=== PATIENT | male | born 1960 | race Caucasian/White ===

== ENCOUNTER 2017-05-13 13:22 | Emergency (ER) | payer OTHER ==
--- NOTE | 2017-05-13 13:38 | ED Physician Documentation ---
PD HPI UPPER EXT INJURY - Stated complaint Stated Complaint: LT THUMB LAC - Chief complaint Chief Complaint: Laceration - History obtained from History obtained from: Patient - History of Present Illness Location: Left, Hand (thenar area) Type of injury: Laceration (with sharp chisel tip while doing some woodwork.) Where injury occurred: Home Timing - onset: Today Timing - details: Abrupt onset Improved by: Dressing Worsened by: Moving, Palpating Associated symptoms: No: Weakness, Numbness, Tingling Contributing factors: No: Anticoagulated Similar symptoms before: Has not had sx before Recently seen: Not recently seen Review of Systems Skin: reports: Laceration (s) Neurologic: denies: Focal weakness, Numbness PD PAST MEDICAL HISTORY - Past Medical History Past Medical History: Yes Cardiovascular: Hypertension, Other Respiratory: None Endocrine/Autoimmune: None GI: GERD, GI bleed, Ulcers, Other : None HEENT: Chronic vision loss Psych: Other Musculoskeletal: Chronic back pain Derm: Other - Past Surgical History Past Surgical History: Yes General: Gastric surgery, Colonoscopy, EGD HEENT: Tonsil/Adenoidectomy - Present Medications Home Medications: Ambulatory Orders Medication Instructions Recorded Confirmed Amlodipine Besylate/Benazepril 1 each PO QPM 10/01/14 05/13/17 [Lotrel 10-40 mg Capsule] traMADol [Ultram] 50 mg PO Q4-6H PRN 10/01/14 05/13/17 Cyanocobalamin (Vitamin B-12) 2,500 mcg PO DAILY 02/03/16 05/13/17 [Vitamin B12] Vitamin B Complex/Folic Acid 1 tab PO DAILY 02/03/16 05/13/17 [Vitamin B-100 Complex Tablet] - Allergies Allergies/Adverse Reactions: Allergies Allergy/AdvReac Type Severity Reaction Status Date / Time NSAIDS (Non-Steroidal AdvReac Intermediate GI bleed Verified 05/13/17 13:33 Anti-Inflamma - Social History Does the pt smoke?: Yes Smoking Status: Current every day smoker Does the pt drink ETOH?: No Does the pt have substance abuse?: No - Immunizations Immunizations are current?: No Immunizations: TDAP >10years/unknown PD ED PE NORMAL - Vitals Vital signs reviewed: Yes - General General: Alert and oriented X 3, No acute distress, Well developed/nourished - Extremities Extremities: Other (left thenar area with 3 cm laceration with small arteriole bleeding noted. The lac goes to the muscle but he has good ROM of the thumb without pain. No FB seen. ) Results - Vitals Vitals: Vital Signs - 24 hr 05/13/17 13:29 Temperature 36.6 C Heart Rate 87 Respiratory 20 Rate Blood Pressure 168/98 H O2 Saturation 98 Oxygen O2 Source Room air Procedures - Laceration (location) left thenar area Length in cm: 3 Wound type: Linear, Into muscle, Clean Neurovascular status: Sensory intact, Motor intact Tendon involvement: Tendon intact Anesthesia: Marcaine 0.5% with epi Deep layer closure: Vicryl, size #-0 - enter number (5), # sutures - enter number (1 for vascular tying to stop bleeding) Skin layer closure: Nylon, Running, Size #-0 - enter number (4), Sutures - enter # (9) Other: Patient tolerated well, No complications, Neurovascular intact, Dressing applied, Tetanus UTD Complexity: Simple PD MEDICAL DECISION MAKING - ED course Complexity details: considered differential, d/w patient Departure - Departure Disposition: 01 Home, Self Care Clinical Impression: Hand laceration Qualifiers: Encounter type: initial encounter Foreign body presence: without foreign body Laterality: left Qualified Code(s): S61.412A - Laceration without foreign body of left hand, initial encounter Condition: Stable Record reviewed to determine appropriate education?: Yes Instructions: ED Laceration Hand Follow-Up: Luis Bravo MD [Primary Care Provider] - Comments: It is okay to wash and shower. Clean off the wound twice a day with soap and water, or peroxide and water. Apply some antibiotic ointment to it to keep it moist. Also to watch for signs of infection such as purulence, redness or increasing pain. Return to your primary care or the ER at the specified time for suture removal. Suture removal 9-10 days. At least one of your blood pressure readings in the ER today was elevated above the normal level. If you have diagnosed high blood pressure in the past, please be sure you are taking your BP medications and eating low salt diet. If you do not have know high BP, then being high today does not mean it is a snf issue. It might be reactively high to the situation that has you here. You should follow up with your primary care to have the blood pressure checked again in the next few days/week or so to see if it is persistently high. If so, then you may need medication or changes in diet/lifestyle to treat it.
[2017-05-13] MEDS ORDERED: TETANUS/DIPHTHERIA/PERTUSSIS 0.5 ML SYRINGE IM ONE ×2 (14:23→14:36)
[2017-05-13 14:58] VITALS: BP 168/101
== END 2017-05-13 15:01 | disposition home or self-care (01) ==
LOC: ED 13:22
DX: S61.012A Laceration without foreign body of left thumb without damage to nail, initial encounter (principal); W27.8XXA Contact with other nonpowered hand tool, initial encounter; Y93.89 Activity, other specified; Z23 Encounter for immunization; I10 Essential (primary) hypertension; F17.200 Nicotine dependence, unspecified, uncomplicated
CPT/HCPCS: 12002; 90471; 99282; 99283

== ENCOUNTER 2017-05-16 10:44 | Emergency (ER) | payer OTHER ==
[2017-05-16 10:53] VITALS: BP 152/88
--- NOTE | 2017-05-16 11:57 | ED Physician Documentation ---
PD HPI SKIN - Stated complaint Stated Complaint: STITCHES COMING UNDONE - Chief complaint Chief Complaint: Wound - Additional information Additional information: 57-year-old man who has a laceration left palm that was sutured here about 5 days ago. A running suture was placed and now 1 of the sutures is fractured in a running suture is coming out. He has no other complaint there is no wound irritation discharge redness or increased pain. Review of systems: For pertinent positive and negatives in the review of systems please see the history of present illness, otherwise all other systems have been reviewed and are negative. Dragon disclaimer: Parts of this medical record were created using voice recognition technology. Because of the inherent limitations of this system, occasional same sounding word substitutions do occur and persist despite proofreading. Please read the document for context. PD PAST MEDICAL HISTORY - Past Medical History Past Medical History: Yes Cardiovascular: Hypertension, Other Respiratory: None Endocrine/Autoimmune: None GI: GERD, GI bleed, Ulcers, Other : None HEENT: Chronic vision loss Psych: Other Musculoskeletal: Chronic back pain Derm: Other - Past Surgical History Past Surgical History: Yes General: Gastric surgery, Colonoscopy, EGD HEENT: Tonsil/Adenoidectomy - Present Medications Home Medications: Ambulatory Orders Medication Instructions Recorded Confirmed Amlodipine Besylate/Benazepril 1 each PO QPM 10/01/14 05/16/17 [Lotrel 10-40 mg Capsule] traMADol [Ultram] 50 mg PO Q4-6H PRN 10/01/14 05/16/17 Cyanocobalamin (Vitamin B-12) 2,500 mcg PO DAILY 02/03/16 05/16/17 [Vitamin B12] Vitamin B Complex/Folic Acid 1 tab PO DAILY 02/03/16 05/16/17 [Vitamin B-100 Complex Tablet] - Allergies Allergies/Adverse Reactions: Allergies Allergy/AdvReac Type Severity Reaction Status Date / Time NSAIDS (Non-Steroidal AdvReac Intermediate GI bleed Verified 05/16/17 10:53 Anti-Inflamma - Social History Does the pt smoke?: Yes Smoking Status: Current every day smoker Does the pt drink ETOH?: No Does the pt have substance abuse?: No - Immunizations Immunizations are current?: No Immunizations: TDAP >10years/unknown PD ED PE NORMAL - Vitals Vital signs reviewed: Yes - General General: Alert and oriented X 3, No acute distress, Well developed/nourished - Extremities Extremities: Other (Approximate 4 cm laceration to the palm of the left hand. The wound looks good the incision is healing nicely. 1 of the corners of the running subcuticular suture is coming undone) Results - Vitals Vitals: Vital Signs - 24 hr 05/16/17 10:50 Temperature 36.4 C L Heart Rate 68 Respiratory 14 Rate Blood Pressure 152/88 H O2 Saturation 98 Oxygen O2 Source Room air PD MEDICAL DECISION MAKING - ED course Complexity details: reviewed old records, reviewed results, re-evaluated patient ED course: I attempted to retry the running suture but was unsuccessful. Pulled taut, trimmed it, diluted into position and covered with Steri-Strips with tincture benzoin. There is good wound approximation and this should assist in the additional healing. The patient will do well and should have the sutures removed in about 3-4 days. Disposition to home Clinical impression: 1. Suture revision of incision left palm Departure - Departure Disposition: Home, Self Care Clinical Impression: Laceration Condition: Good Instructions: ED Laceration Ext Sutr Stap Tape Discharge Date/Time: 05/16/17 11:52
== END 2017-05-16 11:52 | disposition home or self-care (01) ==
LOC: ED 10:44
DX: S61.412D Laceration without foreign body of left hand, subsequent encounter (principal); X58.XXXD Exposure to other specified factors, subsequent encounter; I10 Essential (primary) hypertension
CPT/HCPCS: 99282; 99283

== ENCOUNTER 2017-06-29 11:12 | Emergency (ER) | payer OTHER ==
[2017-06-29 12:13] LABS: BASOPHILS % (AUTO) 0.3 %; HCT - HEMATOCRIT 41.2 % (42.0-52.0); HGB - HEMOGLOBIN 13.5 g/dL (14.0-18.0); LYMPHOCYTES # (AUTO) 0.9 10^3/uL (1.5-3.5); LYMPHOCYTES % (AUTO) 5.6 %; MEAN CORPUSCULAR HEMOGLOBIN 28.4 pg (27.0-31.0); MEAN CORPUSCULAR HGB CONC 32.8 g/dL (32.0-36.0); MEAN CORPUSCULAR VOLUME 86.6 fL (80.0-94.0); MEAN PLATELET VOLUME 7.2 fL (7.4-11.4); MONOCYTES # (AUTO) 0.4 10^3/uL (0.0-1.0); MONOCYTES % (AUTO) 2.7 %; NEUTROPHILS % (AUTO) 91.4 %; NUCLEATED RED BLOOD CELLS AUTO 0.1 /100WBC; RED BLOOD COUNT 4.76 10^6/uL (4.70-6.10); RED CELL DISTRIBUTION WIDTH 13.7 % (12.0-15.0); UNCORRECTED WHITE BLOOD COUNT 15.3 x10^3/uL; WHITE BLOOD COUNT 15.3 x10^3/uL (4.8-10.8)
[2017-06-29 12:20] LABS: ALBUMIN/GLOBULIN RATIO 1.6 (1.0-2.2); BILIRUBIN,TOTAL 0.6 mg/dL (0.2-1.0); CALCIUM 9.1 mg/dL (8.5-10.3); CREATININE 0.9 mg/dL (0.6-1.2); POTASSIUM 3.7 mmol/L (3.5-5.0); TOTAL PROTEIN 7.7 g/dL (6.7-8.2)
--- NOTE | 2017-06-29 12:21 | ED Physician Documentation ---
PD HPI ABD PAIN - Stated complaint Stated Complaint: V/N - Chief complaint Chief Complaint: Abd Pain - History obtained from History obtained from: Patient - History of Present Illness Timing - onset: How many days ago (10) Timing - duration: Days (10) Timing - details: Gradual onset, Waxing and waning Quality: Cramping, Aching, Pain Location: Epigastric, LUQ Radiation: Lower back Improved by: No: Eating, BM Worsened by: No: Eating, Moving Associated symptoms: Nausea, Diarrhea (few episodes, not consistent.), Loss of appetite. No: Fever, Vomiting, Constipation, Melena, Hematochezia, Dysuria, Hematuria, Near syncope / syncope Similar symptoms before: Has not had sx before Recently seen: Clinic ([facility] today and referred to ED for testing her.) Review of Systems Constitutional: reports: Chills, Myalgias. denies: Fever Ears: denies: Drainage/discharge, Foreign body Nose: denies: Rhinorrhea / runny nose, Congestion Throat: denies: Sore throat Cardiac: denies: Chest pain / pressure, Palpitations Respiratory: denies: Dyspnea, Cough GI: reports: Abdominal Pain, Nausea, Diarrhea. denies: Abdominal Swelling, Vomiting, Hematemesis, Bloody / black stool : denies: Dysuria, Frequency, Hematuria, Discharge Skin: denies: Rash PD PAST MEDICAL HISTORY - Past Medical History Cardiovascular: Hypertension, Other Respiratory: None Endocrine/Autoimmune: None GI: GERD, GI bleed, Ulcers, Other : None HEENT: Chronic vision loss Psych: Other Musculoskeletal: Chronic back pain Derm: Other - Past Surgical History Past Surgical History: Yes General: Gastric surgery, Colonoscopy, EGD HEENT: Tonsil/Adenoidectomy - Present Medications Home Medications: Ambulatory Orders Medication Instructions Recorded Confirmed Amlodipine Besylate/Benazepril 1 each PO QPM 10/01/14 06/29/17 [Lotrel 10-40 mg Capsule] traMADol [Ultram] 50 mg PO Q4-6H PRN 10/01/14 06/29/17 Cyanocobalamin (Vitamin B-12) 2,500 mcg PO DAILY 02/03/16 06/29/17 [Vitamin B12] Vitamin B Complex/Folic Acid 1 tab PO DAILY 02/03/16 06/29/17 [Vitamin B-100 Complex Tablet] Amlodipine Besylate [Norvasc] 10 mg PO DAILY #30 tablet 06/29/17 Dicyclomine [Bentyl] 10 mg PO QID PRN #15 capsule 06/29/17 HYDROcod/ACETAM 5/325 [Mayetta 5/325] 1 tab PO Q6H PRN #10 tablet 06/29/17 Metronidazole [Flagyl] 500 mg PO BID #14 tablet 06/29/17 cloNIDine [Catapres] 0.1 mg PO BID #14 tablet 06/29/17 - Allergies Allergies/Adverse Reactions: Allergies Allergy/AdvReac Type Severity Reaction Status Date / Time NSAIDS (Non-Steroidal AdvReac Intermediate GI bleed Verified 06/29/17 11:21 Anti-Inflamma - Social History Does the pt smoke?: Yes Smoking Status: Current every day smoker Does the pt drink ETOH?: No Does the pt have substance abuse?: No - Immunizations Immunizations are current?: No Immunizations: TDAP >10years/unknown - POLST Patient has POLST: No PD ED PE NORMAL - Vitals Vital signs reviewed: Yes - General General: Alert and oriented X 3, No acute distress, Well developed/nourished - HEENT HEENT: PERRL (nonicteric), Moist mucous membranes, Pharynx benign - Neck Neck: Supple, no meningeal sign, No adenopathy - Cardiac Cardiac: RRR, No murmur - Respiratory Respiratory: Clear bilaterally - Abdomen Abdomen: Normal bowel sounds, Soft, Non distended, No organomegaly, Other ( epigastric and LUQ area without guarding, percussion nor rebound tenderness. ) Results - Vitals Vitals: Vital Signs - 24 hr 06/29/17 06/29/17 06/29/17 11:15 13:30 15:25 Temperature 36.2 C L 37.0 C Heart Rate 76 70 60 Respiratory 17 15 22 Rate Blood Pressure 187/98 H 162/92 H 158/93 H O2 Saturation 100 100 100 Oxygen O2 Source Room air - Labs Labs: Laboratory Tests 06/29/17 06/29/17 06/29/17 11:35 11:35 14:00 WBC 15.3 H RBC 4.76 Hgb 13.5 L Hct 41.2 L MCV 86.6 MCH 28.4 MCHC 32.8 RDW 13.7 Plt Count 302 MPV 7.2 L Neut # 14.0 H Lymph # 0.9 L Duchesne # 0.4 Eos # 0.0 Baso # 0.0 Absolute Nucleated RBC 0.02 Nucleated RBC % 0.1 Sodium 139 Potassium 3.7 Chloride 105 Carbon Dioxide 25 Anion Gap 9.0 BUN 25 H Creatinine 0.9 Estimated GFR (MDRD) 87 L Glucose 119 H Calcium 9.1 Total Bilirubin 0.6 AST 15 ALT 13 Alkaline Phosphatase 83 Total Protein 7.7 Albumin 4.7 Globulin 3.0 Albumin/Globulin Ratio 1.6 Lipase 150 H Urine Color YELLOW Urine Clarity CLEAR Urine pH 7.0 Ur Specific Easley 1.015 Urine Protein NEGATIVE Urine Glucose (UA) NEGATIVE Urine Ketones NEGATIVE Urine Occult Blood NEGATIVE Urine Nitrite NEGATIVE Urine Bilirubin NEGATIVE Urine Urobilinogen 0.2 (NORMAL) Ur Leukocyte Esterase NEGATIVE Ur Microscopic Review NOT INDICATED Urine Culture Comments NOT INDICATED - Rads (name of study) abd/pelvic CT Radiology: Prelim report reviewed (No acute process seen to account for pain) RUQ U/S Radiology: Prelim report reviewed (normal bile duct and no wall thickened. Some gallstones. ) PD MEDICAL DECISION MAKING - ED course Complexity details: reviewed results, considered differential (will get labs and CT abd. He has upper abd to LUQ pain and some tenderness, and has had some diarrheal type stools. Sounded possible diverticulitis or consider colitis. He has elevated lipase but normal U/S and CT for the area. Consider side effect of med, benazapril lists pancreatitis as common side effect. He does not drink alcohol. ), d/w patient Departure - Departure Disposition: 01 Home, Self Care Clinical Impression: Colitis Pancreatitis Qualifiers: Chronicity: acute Pancreatitis type: drug induced Acute pancreatitis complication: no infection or necrosis Qualified Code(s): K85.30 - Drug induced acute pancreatitis without necrosis or infection Abdominal pain Qualifiers: Abdominal location: upper abdomen, unspecified Qualified Code(s): R10.10 - Upper abdominal pain, unspecified Condition: Stable Record reviewed to determine appropriate education?: Yes Instructions: ED Gastroenteritis Bacterial, ED Pancreatitis Follow-Up: Luis Bravo MD [Primary Care Provider] - Prescriptions: Amlodipine Besylate [Norvasc] 10 mg PO DAILY #30 tablet cloNIDine [Catapres] 0.1 mg PO BID #14 tablet Dicyclomine [Bentyl] 10 mg PO QID PRN #15 capsule PRN Reason: Spasms HYDROcod/ACETAM 5/325 [Mayetta 5/325] 1 tab PO Q6H PRN #10 tablet PRN Reason: Pain Metronidazole [Flagyl] 500 mg PO BID #14 tablet Comments: Your lipase is elevated at 150 and it was elevated and the prior ER visit as well. This can be affect from the benazepril and your blood pressure medicine. I would change from the combination medication to just amlodipine alone. Follow-up with your primary care regarding other blood pressure medications. In the interim if her blood pressure is quite high then you could use clonidine 0.1 mg twice daily. This may be part of the cause of your upper belly pain. However he has had some loose stool and an elevated white count and so I think there may be some colitis as well. For that use the metronidazole twice daily for a week, drink lots of fluids. For the pain use Tylenol or dicyclomine for spasms. Add hydrocodone if needed. Follow-up with your primary care within the next several days to week. Discharge Date/Time: 06/29/17 16:22
[2017-06-29] MEDS ORDERED: ONDANSETRON 4 MG/2 ML VIAL IVP STA (12:41)
[2017-06-29] MEDS ORDERED: ACETAMINOPHEN 1,000 MG/100 ML 100 ML IV STA (12:41)
[2017-06-29] MEDS ORDERED: SODIUM CHLORIDE FLUSH 0.9% 10 ML SYRINGE IVP ONE ×2 (12:51→14:07)
[2017-06-29] MEDS ORDERED: ONDANSETRON 4 MG/2 ML VIAL ONE (12:51)
[2017-06-29] MEDS ORDERED: ACETAMINOPHEN 1,000 MG/100 ML 100 ML IV ONE (12:52)
[2017-06-29] MEDS ORDERED: IOPAMIDOL-300 100 ML VIAL ONE (13:06)
[2017-06-29] MEDS ORDERED: IOPAMIDOL-300 100 ML VIAL IVP ONE (13:34)
[2017-06-29] MEDS ORDERED: METOCLOPRAMIDE 10 MG/2 ML VIAL IVP STA (13:56)
--- NOTE | 2017-06-29 13:59 | CT Report ---
EXAM: CT ABDOMEN AND PELVIS EXAM DATE: 06/29/2017 01:36 PM. CLINICAL HISTORY: Abdominal pain COMPARISONS: None. TECHNIQUE: Routine helical CT imaging was performed through the abdomen and pelvis. IV contrast: 100 cc Isovue-300. Enteric contrast: No. Reconstructions: Coronal and sagittal. In accordance with CT protocol optimization, one or more of the following dose reduction techniques w ere utilized for this exam: automated exposure control, adjustment of mA and/or KV based on patient s ize, or use of iterative reconstructive technique. FINDINGS: Lung Bases: Unremarkable. Liver: Normal. No masses. Gallbladder/Bile Ducts: Unremarkable. Spleen: The spleen is normal in size. There are several subcentimeter hypodensities within the spleen . No perisplenic fat stranding. Pancreas: Normal. Adrenal Glands: There is mild thickening of the bilateral adrenal glands. Kidneys: Normal. No masses or hydronephrosis. Peritoneal Cavity/Bowel: The patient has undergone gastric bypass. The bypass anatomy is not entirely clear from this examination. There are surgical zohra along the left aspect of excluded stomach. T here are clumped small bowel loops at the gastrojejunal anastomosis. The excluded stomach is decompre ssed. The jejunojejunal anastomosis appears to be within the left lower quadrant. No clearly dilated or thick-walled bowel is seen. No mesenteric fat stranding. There are subcentimeter mesenteric lymph nodes. The colon demonstrates no acute abnormalities. There is no evidence of appendicitis. Pelvic Organs: No acute pelvic or renal abnormalities are seen. Vasculature: No aneurysms or other significant abnormality. Bones: No significant abnormality. Other: None. IMPRESSION: 1. Patient has undergone gastric bypass. The bypass anatomy is unclear from this examination. There i s no dilated bowel or mesenteric fat stranding to suggest obstruction or enteritis. Comparison with a ny available prior CT imaging or upper GI fluoroscopic examination could be used for further assessme nt of the bypass anatomy. 2. There are subcentimeter mesenteric lymph nodes. 3. There are multiple small hypodensities within the spleen. There is no evidence of splenic enlargem ent or parasplenic fat stranding. The hypodensities may represent small cysts or hemangiomas. 4. No evidence of appendicitis or bowel obstruction. [facility] Referring Provider Line: [phone] SITE ID: [id number]
[2017-06-29] MEDS ORDERED: METOCLOPRAMIDE 10 MG/2 ML VIAL ONE (14:06)
[2017-06-29 14:16] LABS: BILIRUBIN,URINE NEGATIVE (NEGATIVE)
[2017-06-29 14:17] LABS: UA CHARGE (STRIP ONLY) YES; UR CULTURE IF IND NOT INDICATED
[2017-06-29] MEDS ORDERED: DICYCLOMINE 10 MG CAPSULE PO STA (14:27)
[2017-06-29] MEDS ORDERED: DICYCLOMINE 10 MG CAPSULE PO ONE (14:51)
[2017-06-29 15:26] VITALS: BP 158/93
--- NOTE | 2017-06-30 09:16 | Ultrasound Report ---
RIGHT UPPER QUADRANT ULTRASOUND: 06/29/2017 CLINICAL INDICATION: Pain. TECHNIQUE: Real-time scanning was performed with admissions representative static images obtained. FINDINGS: The liver measures 18.3 cm. Hepatic echotexture is unremarkable. No intrahepatic biliary d ilatation or focal parenchymal lesion is seen. The common bile duct measures 5 mm. The gallbladder de monstrates small mobile stones and sludge. No wall thickening or pericholecystic fluid is seen. The r ight kidney measures 12.3 cm, and demonstrates no hydronephrosis. No free fluid is present. IMPRESSION: CHOLELITHIASIS, WITHOUT EVIDENCE OF ACUTE CHOLECYSTITIS OR BILIARY OBSTRUCTION. JOB #: [id number] EXT JOB #:[id number]
== END 2017-06-29 16:22 | disposition home or self-care (01) ==
LOC: ED 11:12
DX: K52.9 Noninfective gastroenteritis and colitis, unspecified (principal); K85.30 Drug induced acute pancreatitis without necrosis or infection; R10.12 Left upper quadrant pain; R74.8 Abnormal levels of other serum enzymes; I10 Essential (primary) hypertension; F17.200 Nicotine dependence, unspecified, uncomplicated
CPT/HCPCS: 36415; 74177; 76705; 80053; 81003; 83690; 85025; 96365; 96375; 99283; 99284; A9270; J0131; Q9967; 81001; 87086

== ENCOUNTER 2017-09-11 20:48 | Outpatient (CLI) | payer OTHER | END 2017-09-11 20:49 | disposition critical access hospital (66) | LOC: EMS 20:48 | PROVIDERS: ATTEND Surgery | DX: S01.81XA Laceration without foreign body of other part of head, initial encounter (principal); M25.531 Pain in right wrist; V18.4XXA Pedal cycle driver injured in noncollision transport accident in traffic accident, initial encounter; Y93.55 Activity, bike riding; Y92.414 Local residential or business street as the place of occurrence of the external cause | CPT/HCPCS: A0425; A0429 ==

== ENCOUNTER 2017-09-11 20:53 | Emergency (ER) | payer OTHER ==
[2017-09-11 21:04] VITALS: BP 165/107
[2017-09-11] MEDS ORDERED: oxyCOD/ACETAMIN 5 MG/325 MG TABLET PO STA (21:05)
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
== END 2017-09-11 22:30 | disposition home or self-care (01) ==
LOC: EDUNIT# → ED 20:53
DX: S01.81XA Laceration without foreign body of other part of head, initial encounter (principal); V19.9XXA Pedal cyclist (driver) (passenger) injured in unspecified traffic accident, initial encounter; Y93.55 Activity, bike riding; Y92.410 Unspecified street and highway as the place of occurrence of the external cause; I10 Essential (primary) hypertension; F17.200 Nicotine dependence, unspecified, uncomplicated
CPT/HCPCS: 70450; 72125; 73110; 99283; 99284; A9270

== ENCOUNTER 2018-06-13 10:57 | Emergency (ER) | payer OTHER ==
[2018-06-13] MEDS ORDERED: SODIUM CHLORIDE 0.9% 1,000 ML IV ONE (12:04)
[2018-06-13 12:13] LABS: BASOPHILS % (AUTO) 0.5 %; EOSINOPHILS # (AUTO) 0.1 10^3/uL (0.0-0.7); EOSINOPHILS % (AUTO) 0.5 %; HGB - HEMOGLOBIN 13.3 g/dL (14.0-18.0); LYMPHOCYTES # (AUTO) 1.4 10^3/uL (1.5-3.5); LYMPHOCYTES % (AUTO) 13.5 %; MEAN CORPUSCULAR HEMOGLOBIN 29.6 pg (27.0-31.0); MEAN CORPUSCULAR VOLUME 87.2 fL (80.0-94.0); MONOCYTES # (AUTO) 0.6 10^3/uL (0.0-1.0); NEUTROPHILS % (AUTO) 79.5 %; PLT - PLATELET COUNT 234 10^3/uL (130-450); RED BLOOD COUNT 4.49 10^6/uL (4.70-6.10); WHITE BLOOD COUNT 10.1 x10^3/uL (4.8-10.8)
--- NOTE | 2018-06-13 12:39 | ED Physician Documentation ---
History of Present Illness - Stated complaint Stated Complaint: UPPER LT ABD PX - Chief complaint Chief Complaint: Abd Pain - Additonal information Additional information: hx from pt 58 male hx gastric bypass his GB was not removed annual pancreatitis for many years states he has had imaging numerous times - no gallstones also had upper and lower scopes numerous times - just polyps no EtOH states he believes the pancreatitis is 2/2 prior gastric bypass sx acting up again for about a week had labs a week ago at [facility] - [place] again today and PM called and said amylase was toni high and to go to the ER pain presently 09/21 nausea no fever Review of Systems Constitutional: denies: Fever, Chills Cardiac: denies: Chest pain / pressure Respiratory: denies: Dyspnea GI: reports: Abdominal Pain, Nausea : denies: Dysuria Endocrine: denies: Easy bruising / bleeding Immunocompromised: denies: Immunocompromised PD PAST MEDICAL HISTORY - Past Medical History Cardiovascular: Hypertension, Other Respiratory: None Endocrine/Autoimmune: None GI: GERD, GI bleed, Ulcers, Pancreatitis, Other : None HEENT: Chronic vision loss Psych: Other Musculoskeletal: Chronic back pain Derm: Other - Past Surgical History Past Surgical History: Yes General: Gastric surgery, Colonoscopy, EGD HEENT: Tonsil/Adenoidectomy - Present Medications Home Medications: Ambulatory Orders Medication Instructions Recorded Confirmed Vitamin B Complex/Folic Acid 1 tab PO DAILY 02/03/16 03/14/18 [Vitamin B-100 Complex Tablet] Nifedipine [Nifedipine ER] 3 tab PO DAILY 03/14/18 03/14/18 Ondansetron Odt [Zofran] 4 mg TL Q6H PRN #10 tablet 06/13/18 traMADol [Ultram] 50 mg PO Q4-6H PRN 06/13/18 06/13/18 - Allergies Allergies/Adverse Reactions: Allergies Allergy/AdvReac Type Severity Reaction Status Date / Time NSAIDS (Non-Steroidal AdvReac Intermediate GI bleed Verified 06/13/18 11:10 Anti-Inflamma - Social History Does the pt smoke?: No Smoking Status: Former smoker Does the pt drink ETOH?: No Does the pt have substance abuse?: No - Immunizations Immunizations are current?: Yes Immunizations: TDAP >10years/unknown - POLST Patient has POLST: No PD ED PE NORMAL - Vitals Vital signs reviewed: Yes - Neck Neck: Supple, no meningeal sign - Cardiac Cardiac: RRR - Respiratory Respiratory: No respiratory distress, Clear bilaterally - Abdomen Abdomen: Soft, Other (mild TTP upper abd no peritoneal signs) Results - Vitals Vitals: Vital Signs - 24 hr 06/13/18 11:08 Temperature 36.5 C Heart Rate 87 Respiratory 16 Rate Blood Pressure 162/96 H O2 Saturation 99 Oxygen O2 Source Room air - Labs Labs: Laboratory Tests 06/13/18 06/13/18 11:40 11:40 WBC 10.1 RBC 4.49 L Hgb 13.3 L Hct 39.1 L MCV 87.2 MCH 29.6 MCHC 34.0 RDW 14.0 Plt Count 234 MPV 7.0 L Neut # (Auto) 8.0 H Lymph # (Auto) 1.4 L [place] # (Auto) 0.6 Eos # (Auto) 0.1 Baso # (Auto) 0.0 Absolute Nucleated RBC 0.00 Nucleated RBC % 0.0 Amylase 267 H PD MEDICAL DECISION MAKING - Sepsis Event Vital Signs: Vital Signs - 24 hr 06/13/18 11:08 Temperature 36.5 C Heart Rate 87 Respiratory 16 Rate Blood Pressure 162/96 H O2 Saturation 99 Oxygen O2 Source Room air Departure - Departure Disposition: 01 Home, Self Care Clinical Impression: Pancreatitis Qualifiers: Chronicity: acute Pancreatitis type: unspecified pancreatitis type Acute pancreatitis complication: unspecified Qualified Code(s): K85.90 - Acute pancreatitis without necrosis or infection, unspecified Condition: Good Instructions: ED Pancreatitis Follow-Up: MATILDE BROTHERS DO [Primary Care Provider] - Prescriptions: Ondansetron Odt [Zofran] 4 mg TL Q6H PRN #10 tablet PRN Reason: Nausea / Vomiting Comments: Your amylase and lipase are modestly elevated but not dangerously high - amylase 267 lipase 280 And your pain is mild. So I think it is safe for you to go home for now. Recommend a clear liquid diet for 48h to rest your pancreas Your pancreatitis could get worsen, even with the clear liquid diet If the pain gets worse, come back and we will recheck your labs and see if you need to be admitted after all I have prescribed medication for nausea and you can take tylenol for the pain Forms: Activity restrictions
[2018-06-13 13:01] LABS: ALBUMIN 4.5 g/dL (3.2-5.5); ALBUMIN/GLOBULIN RATIO 1.9 (1.0-2.2); BILIRUBIN,TOTAL 0.7 mg/dL (0.2-1.0); CALCIUM 9.1 mg/dL (8.5-10.3); TOTAL PROTEIN 6.9 g/dL (6.7-8.2)
[2018-06-13 14:46] VITALS: BP 147/95
== END 2018-06-13 14:46 | disposition home or self-care (01) ==
LOC: ED 10:57
DX: K85.90 Acute pancreatitis without necrosis or infection, unspecified (principal); I10 Essential (primary) hypertension; Z98.84 Bariatric surgery status; Z87.19 Personal history of other diseases of the digestive system; Z87.891 Personal history of nicotine dependence
CPT/HCPCS: 36415; 80053; 82150; 83690; 85025; 96360; 99283

== ENCOUNTER 2019-01-04 10:13 | Outpatient (CLI) | payer OTHER ==
[2019-01-04 10:53] LABS: ALBUMIN 4.5 g/dL (3.2-5.5); ALKALINE PHOSPHATASE 86 IU/L (42-121); ALT ALANINE AMINOTRANSFERASE 22 IU/L (10-60); AMYLASE 312 U/L (28-100); AST ASPARTATE AMINOTRANSFERASE 19 IU/L (10-42); BILIRUBIN,DIRECT 0.1 mg/dL (0.1-0.5); BILIRUBIN,TOTAL 0.9 mg/dL (0.2-1.0); CHOL/HDL RATIO 3.9 (<5.0); CHOLESTEROL 170 mg/dL; HDL CHOLESTEROL 44 mg/dL; LDL CHOLESTEROL,CALCULATED 97 mg/dL; LDL/HDL RATIO 2.2 (<3.6); LIPASE 123 U/L (22-51); TOTAL PROTEIN 7.3 g/dL (6.7-8.2); VLDL CHOLESTEROL 29 mg/dL
== END 2019-01-04 10:14 | disposition home or self-care (01) ==
LOC: LAB 10:13
PROVIDERS: ATTEND Physician Assistant
DX: K85.90 Acute pancreatitis without necrosis or infection, unspecified (principal)
CPT/HCPCS: 36415; 80061; 80076; 82150; 82784; 82787; 83690; 83721

== ENCOUNTER 2019-01-10 14:12 | Outpatient (CLI) | payer OTHER ==
[2019-01-10] MEDS ORDERED: GADOBUTROL 10 MMOL/10 ML VIAL ONE (14:33)
[2019-01-10] MEDS ORDERED: GADOBUTROL 10 MMOL/10 ML VIAL IVP ONE (15:54)
--- NOTE | 2019-01-11 06:24 | MRI Report ---
Reason: BILIARY ACUTE PANCREATITIS WITHOUT NECR,HYPERTENSI Procedure Date: 01/10/2019 Accession Number: [id number] / [id number] Procedure: MRI - MRCP W/WO CPT Code: FULL RESULT: EXAM: MR ABDOMEN WITH AND WITHOUT CONTRAST (MR PANCREAS AND 3D MRCP) EXAM DATE: 01/10/2019 04:25 PM. CLINICAL HISTORY: Abdominal pain, pancreatitis. COMPARISON: None. TECHNIQUE: Multiplanar breath-hold T1, T2, and DWI sequences obtained through the pancreas and abdomen on an MR scanner. Dedicated 2D and 3D MRCP sequences obtained through the biliary and pancreatic ducts. Images obtained before and after administration of 10 mL Gadavist intravenous contrast. Multiphase postcontrast sequences obtained through the pancreas. FINDINGS: Gallbladder: Small gallstones are noted. No pathologic wall thickening or pericholecystic fluid demonstrated. Bile Ducts: There is no intrahepatic or extrahepatic biliary ductal dilation demonstrated at this time. No choledocholithiasis is demonstrated. Pancreas: There is no pancreatic ductal dilation demonstrated. There is no peripancreatic inflammatory fat stranding. There is dual drainage of the pancreas via the major and minor papilla. No suspicious pancreatic lesion. Adrenals: There is a 1.5 cm medial limb left adrenal adenoma (image 49 series 801). Kidneys: There are a few scattered small cysts within the kidneys bilaterally, largest measuring 1.3 cm within the posterior portion of the left mid to lower kidney. No hydronephrosis or definite suspicious renal mass noted. There is also a small exophytic lesion arising from the medial superior portion of the left kidney, with some layering blood products. This abnormality measures 13 mm (image 53 series 801). Spleen: There are multifocal small T2 hyperintense and low T1 signal intensity lesions scattered throughout the spleen. Dominant somewhat heterogeneous T2 signal intensity lesion is seen centrally within the spleen measuring 1.5 cm. Some of these lesions are hypointense on the postcontrast sequences, suggesting tiny splenic cysts versus granuloma. Some of the larger lesions may represent splenic hemangiomata. Bowel: No abnormal dilated loops. Vasculature: Aorta is normal in caliber. Portal, hepatic, superior mesenteric, and splenic veins are patent. Lymph Nodes: No pathologic lymphadenopathy. Ascites: No significant ascites. Lower Chest: No significant consolidation or effusion. Bones: No definite suspicious bone lesions are noted. IMPRESSION: 1. A few dependent gallstones are seen. No evidence of cholecystitis. 2. No pathologic biliary dilation. No choledocholithiasis. 3. No current exam findings to indicate acute pancreatitis. Conventional pancreatic ductal anatomy without pathologic ductal dilation. RADIA
== END 2019-01-10 14:13 | disposition home or self-care (01) ==
LOC: DI 14:12
PROVIDERS: ATTEND Internal Medicine Gastroenterology
DX: K80.20 Calculus of gallbladder without cholecystitis without obstruction (principal); I10 Essential (primary) hypertension
CPT/HCPCS: 74183; 93005; A9585

== ENCOUNTER 2019-01-11 12:35 | Outpatient (CLI) | payer OTHER ==
[2019-01-11 12:52] LABS: BASOPHILS # (AUTO) 0.1 10^3/uL (0.0-0.1); BASOPHILS % (AUTO) 0.5 %; EOSINOPHILS # (AUTO) 0.1 10^3/uL (0.0-0.7); EOSINOPHILS % (AUTO) 0.6 %; HGB - HEMOGLOBIN 13.3 g/dL (14.0-18.0); LYMPHOCYTES % (AUTO) 15.4 %; MEAN CORPUSCULAR HEMOGLOBIN 28.5 pg (27.0-31.0); MEAN CORPUSCULAR HGB CONC 32.5 g/dL (32.0-36.0); MEAN CORPUSCULAR VOLUME 87.8 fL (80.0-94.0); MONOCYTES # (AUTO) 0.4 10^3/uL (0.0-1.0); MONOCYTES % (AUTO) 3.5 %; NEUTROPHILS # (AUTO) 10.2 10^3/uL (1.5-6.6); PLT - PLATELET COUNT 321 10^3/uL (130-450); RED BLOOD COUNT 4.67 10^6/uL (4.70-6.10); RED CELL DISTRIBUTION WIDTH 13.8 % (12.0-15.0); WHITE BLOOD COUNT 12.8 x10^3/uL (4.8-10.8)
[2019-01-11 12:58] LABS: ALBUMIN 4.6 g/dL (3.2-5.5); ALBUMIN/GLOBULIN RATIO 1.6 (1.0-2.2); BILIRUBIN,TOTAL 0.6 mg/dL (0.2-1.0); CALCIUM 9.5 mg/dL (8.5-10.3); CREATININE 1.2 mg/dL (0.6-1.2); TOTAL PROTEIN 7.5 g/dL (6.7-8.2)
== END 2019-01-11 12:36 | disposition home or self-care (01) ==
LOC: LAB 12:35
PROVIDERS: ATTEND Internal Medicine Gastroenterology
DX: K85.10 Biliary acute pancreatitis without necrosis or infection (principal)
CPT/HCPCS: 36415; 80053; 83690; 85025

== ENCOUNTER 2019-01-15 06:12 | Day surgery (SDC) | payer OTHER ==
[2019-01-15] MEDS ORDERED: LACTATED RINGERS 1,000 ML IV ONE ×2 (06:29→09:30)
[2019-01-15] MEDS ORDERED: ceFAZolin 2 GM/50 ML 2 GM/50 ML BAG IV ONE ×2 (06:31→08:08)
[2019-01-15] MEDS ORDERED: BUPIVACAINE 0.5%-EPI 1:200000 PF 30 ML VIAL ONE (07:01)
--- NOTE | 2019-01-15 07:09 | ANESTHESIA ---
Pre-Anesthesia VS, & Labs - Diagnosis symptomatic gall bladder disease - Procedure laparoscopic cholecystectomy with intraoperative cholangiogram Vital Signs: Temp Pulse Resp BP Pulse Ox 36.2 C L 72 16 165/95 H 96 01/15/19 06:36 01/15/19 06:36 01/15/19 06:36 01/15/19 06:36 01/15/19 06:36 Height 5 ft 10 in Weight (kg) 100 kg Body Mass Index 28.7 - NPO >8 hours Home Medications and Allergies Home Medications: Ambulatory Orders Cyclobenzaprine [Flexeril] 10 mg PO TID PRN 01/10/19 Multivitamin [Daily Multiple Vitamin] 1 each PO DAILY 01/10/19 Vitamin B Complex/Folic Acid [Vitamin B-100 Complex Tablet] 1 tab PO DAILY 02/03/16 Nifedipine [Nifedipine ER] 3 tab PO DAILY 03/14/18 traMADol [Ultram] 50 mg PO Q4-6H PRN 06/13/18 Cyclobenzaprine [Flexeril] 10 mg PO TID PRN 01/10/19 Multivitamin [Daily Multiple Vitamin] 1 each PO DAILY 01/10/19 Allergies/Adverse Reactions: Allergies Allergy/AdvReac Type Severity Reaction Status Date / Time NSAIDS (Non-Steroidal AdvReac Intermediate GI bleed Verified 06/13/18 11:10 Anti-Inflamma Anes History & Medical History - Anesthetic History Anesthesia Complications: reports: No previous complications - Medical History Cardiovascular: reports: Hypertension, Other Pulmonary: reports: None Gastrointestinal: reports: GERD, GI bleed, Ulcers, Pancreatitis, Other Urinary: reports: None Musculoskeletal: reports: Chronic back pain Endocrine/Autoimmune: reports: None Skin: reports: Other Smoking Status: Former smoker - Surgical History General: Gastric surgery, Colonoscopy, EGD Eyes Ears Nose Throat (EENT): Tonsil/Adenoidectomy Orthopedic: Carpal Tunnel surgery, Other Dermatologic: Skin cancer surgery Exam General: Alert Dental: WNL Mouth Openin Fingerbreadth Mallampati classification: II Thyromental Distance: greater than 6 cm Respiratory: Lungs clear Cardiovascular: Regular rate Plan Anesthesia Type: General Consent for Procedure(s) Verified and Reviewed: Yes Code Status: Attempt Resuscitation ASA classification: 2-Mild systemic disease Is this case an emergency?: No
[2019-01-15] MEDS ORDERED: DEXAMETHASONE 4 MG/ML VIAL IVP ONE (08:08)
[2019-01-15] MEDS ORDERED: GLYCOPYRROLATE 1 MG/5 ML VIAL IVP ONE (08:08)
[2019-01-15] MEDS ORDERED: ROCURONIUM 50 MG/5 ML VIAL IVP ONE (08:08)
[2019-01-15] MEDS ORDERED: ONDANSETRON 4 MG/2 ML VIAL IVP ONE (08:08)
[2019-01-15] MEDS ORDERED: KETOROLAC 30 MG/ML VIAL IVP ONE (08:08)
[2019-01-15] MEDS ORDERED: LIDOCAINE-MPF 1% 5 ML VIAL SUBQ ONE (08:08)
[2019-01-15] MEDS ORDERED: NEOSTIGMINE 1 MG/1 ML 10 ML MDV IVP ONE (08:08)
[2019-01-15] MEDS ORDERED: fentaNYL 100 MCG/2 ML VIAL IVP ONE (08:08)
[2019-01-15] MEDS ORDERED: ACETAMINOPHEN 1,000 MG/100 ML 100 ML IV ONE (08:08)
[2019-01-15] MEDS ORDERED: BUPIVACAINE 0.5%-EPI 1:200000 PF 10 ML VIAL SUBQ ONE ×2 (08:10)
[2019-01-15] MEDS ORDERED: IOTHALAMATE MEGLUMINE 50 ML VIAL IVP ONE (08:19)
[2019-01-15] MEDS ORDERED: IOTHALAMATE MEGLUMINE 50 ML VIAL ONE (08:23)
--- NOTE | 2019-01-15 09:06 | XRAY Report ---
Reason: CHOLANGIOGRAM Procedure Date: 01/15/2019 Accession Number: [id number] / [id number] Procedure: FL - OR C-Arm Procedure CPT Code: FULL RESULT: EXAM: FLUOROSCOPIC GUIDANCE EXAM DATE: 01/15/2019 08:36 AM. CLINICAL HISTORY: Intraoperative cholangiogram. COMPARISON: None. FINDINGS: 2 intraoperative images are submitted which demonstrate overlying hardware and based on osseous anatomy likely the right upper quadrant. A portion of the biliary tree is identified, incompletely visualized. IMPRESSION: Fluoroscopic guidance provided for intraoperative cholangiogram. Total fluoroscopy time: 0.3 minutes. Number of images: 2. HARRY
[2019-01-15] MEDS ORDERED: IBUPROFEN 600 MG TABLET PO PRN (09:28)
[2019-01-15] MEDS ORDERED: ONDANSETRON 4 MG/2 ML VIAL IVP PRN (09:28)
[2019-01-15] MEDS ORDERED: ACETAMINOPHEN 325 MG TABLET PO PRN (09:28)
[2019-01-15] MEDS ORDERED: oxyCODONE 5 MG TABLET PO PRN (09:28)
--- NOTE | 2019-01-15 09:58 | OPERATIVE REPORT ---
DATE OF SERVICE: 01/15/2019 Physician: Keshav Gonzalez MD PREOPERATIVE DIAGNOSIS: Symptomatic gallbladder disease. POSTOPERATIVE DIAGNOSES 1. Symptomatic gallbladder disease. 2. Umbilical hernia. PROCEDURES 1. Laparoscopic cholecystectomy with intraoperative cholangiograms. 2. Umbilical herniorrhaphy. ANESTHESIA: General endotracheal by Dr. Lakhani. SURGEON: Keshav Gonzalez MD ESTIMATED BLOOD LOSS: 10 mL COMPLICATIONS: None. FINDINGS: Laparoscopy revealed post-gastric bypass state. The liver appeared normal. Gallbladder e xternal surface appeared normal. Cystic duct was of normal caliber. Intraoperative cholangiograms w ere interpreted as normal with normal caliber bile ducts, no filling defects, and free flow of contra st into the duodenum. Visualized portions of the small and large bowel were otherwise within normal limits. 1.5 cm umbilical hernia was present with preperitoneal fat comprising the contents of the he rnia sac. INDICATIONS: The patient is a 58-year-old gentleman with recurrent bouts of acute pancreatitis, even tually diagnosed as biliary in nature when imaging revealed multiple tiny stones in the gallbladder. Further evaluation of the MRCP failed to show any other etiology for his symptoms, and he was advise d to undergo laparoscopic cholecystectomy for definitive surgical treatment of his condition. TECHNIQUE: After informed consent, the patient was taken to the operating room, where he was placed under general endotracheal anesthesia. Preoperative preparation included administration of 2 grams o f cefazolin intravenously within an hour of the incision, and application of sequential calf compress ion boots. His abdomen had been clipped in the ASU, was prepped with ChloraPrep solution and draped in the usual sterile fashion. A transverse curvilinear incision was made on the superior edge of the umbilicus and carried down through the layers of the abdominal wall until the peritoneum was identif ied and entered sharply. A 10 mm Nelson cannula was inserted, and pneumoperitoneum achieved with car bon dioxide. A 10 mm 30-degree Ebony telescope was inserted. Laparoscopy was carried out with fin dings noted above. Three 5 mm ports were placed in the right upper quadrant. The gallbladder was gr asped and retracted in a cephalad and lateral direction, exposing the cystic triangle of [place]. This region was carefully dissected using electrocautery, isolating the cystic duct and artery adjacent t o the gallbladder. The cystic artery was doubly clipped proximally and distally, adjacent to the gal lbladder. The cystic duct was clipped adjacent to the gallbladder, and then incised distal to the cl ip. A taut cholangiogram catheter was inserted and cholangiography was carried out. Findings as not ed above. The quality of study was good. Approximately 30 mL of a 50:50 solution of Optiray and ashley ine were used. There were no apparent complications from the study. The cholangiogram catheter was then removed. The cystic duct was triply clipped distal to the point of incision. Cystic duct was t hen divided at the point of incision. Cystic artery was divided between the two sets of clips. The gallbladder was excised from the liver bed using electrocautery for dissection and hemostasis. The g allbladder was detached intact, placed in an organ retrieval bag, extracted and sent for pathologic e valuation. After hemostasis was assured, the right upper quadrant was copiously irrigated with saline solution, following which instruments and cannulas were removed under direct vision. Pneumoperitoneum was allo wed to escape. Upon closing the periumbilical port site, it was evident that an umbilical hernia was present. The hernia sac and contents were dissected free from the overlying umbilical skin, then re duced into the peritoneal cavity. A common defect was created with the incision in the fascia, and t he resulting defect was closed with a single layer of continuous 0 Ethibond sutures. Again after hem ostasis was assured, wound closure was then accomplished using interrupted 3-0 Vicryl to reapproximat e the subcutaneous layer included reapproximation of the umbilical dermis to the anterior fascia, and all of the incisions were closed with 4-0 Monocryl subcuticular on the skin closure, followed by Sahil mabond. 20 mL of 0.5% Marcaine with epinephrine was infiltrated into the incisions for postoperative analgesia. Anesthesia was terminated, and the patient was transferred to the recovery room in [employer] condition. Sponge and needle counts were correct. No drains were used. cc: Jessica Mcdermott DO TD: 01/15/2019 09:39
[2019-01-15] MEDS ORDERED: PROMETHAZINE INJ 12.5 MG in SODIUM CHLORIDE 0.9% 50 ML IV ONE (12:00)
[2019-01-15 12:16] VITALS: BP 162/93
== END 2019-01-15 06:13 | disposition home or self-care (01) ==
LOC: SDS 06:12
PROVIDERS: ATTEND Internal Medicine Gastroenterology
PROC: 0FT44ZZ Resection of Gallbladder, Percutaneous Endoscopic Approach (ICD-10-PCS; principal; 2019-01-15 07:30)
DX: K80.10 Calculus of gallbladder with chronic cholecystitis without obstruction (principal); K85.10 Biliary acute pancreatitis without necrosis or infection; K42.9 Umbilical hernia without obstruction or gangrene; K21.9 Gastro-esophageal reflux disease without esophagitis; I10 Essential (primary) hypertension; G89.29 Other chronic pain; M54.9 Dorsalgia, unspecified; E11.9 Type 2 diabetes mellitus without complications; E66.9 Obesity, unspecified; Z68.30 Body mass index [BMI] 30.0-30.9, adult; Z98.84 Bariatric surgery status; Z87.11 Personal history of peptic ulcer disease; Z87.891 Personal history of nicotine dependence
CPT/HCPCS: 47562; J0131; J0690; J7120; Q9961

== ENCOUNTER 2019-05-30 15:38 | Emergency (ER) | payer OTHER ==
[2019-05-30] MEDS ORDERED: LIDOCAINE VISCOUS 2% 15 ML UDC MM STA (16:08)
[2019-05-30] MEDS ORDERED: HYDROmorphone 1 MG/ML CARPUJECT IVP STA (16:08)
[2019-05-30] MEDS ORDERED: MAG HYDROX/AL HYDROX/SIMETH 30 ML UDC PO STA (16:08)
[2019-05-30] MEDS ORDERED: ONDANSETRON 4 MG/2 ML VIAL IVP STA (16:08)
--- NOTE | 2019-05-30 16:10 | ED Physician Documentation ---
PD HPI ABD PAIN - Stated complaint Stated Complaint: CHEST PAIN/V - Chief complaint Chief Complaint: Cardiac - History obtained from History obtained from: Patient - History of Present Illness Timing - onset: Other (59-year-old gentleman with history of gastric bypass, laparoscopic in 2010. Subsequently developed gallstone pancreatitis and had his gallbladder out earlier this year. For the last 4 days he has been nauseous and had mild abdominal pain which became severe with more severe nausea today. Its epigastric pain radiating to the left shoulder. Bowel movements have been normal. It feels similar to prior pancreatitis. Does not drink alcohol.) Review of Systems Ten Systems: 10 systems reviewed and negative Constitutional: reports: Reviewed and negative Throat: reports: Reviewed and negative Cardiac: reports: Reviewed and negative PD PAST MEDICAL HISTORY - Past Medical History Cardiovascular: Hypertension, Other Respiratory: None Endocrine/Autoimmune: None GI: GERD, GI bleed, Ulcers, Pancreatitis, Other : None HEENT: Chronic vision loss Psych: Other Musculoskeletal: Chronic back pain Derm: Other - Past Surgical History Past Surgical History: Yes General: Gastric surgery, Colonoscopy, EGD Ortho: Carpal Tunnel surgery, Other HEENT: Tonsil/Adenoidectomy Derm: Skin cancer surgery - Present Medications Home Medications: Ambulatory Orders Medication Instructions Recorded Confirmed Vitamin B Complex/Folic Acid 1 tab PO DAILY 02/03/16 01/10/19 [Vitamin B-100 Complex Tablet] Nifedipine [Nifedipine ER] 3 tab PO DAILY 03/14/18 01/10/19 traMADol [Ultram] 50 mg PO Q4-6H PRN 06/13/18 01/10/19 Cyclobenzaprine [Flexeril] 10 mg PO TID PRN 01/10/19 01/10/19 Multivitamin [Daily Multiple 1 each PO DAILY 01/10/19 01/10/19 Vitamin] Omeprazole 20 mg PO BID #60 capsule. 05/30/19 - Allergies Allergies/Adverse Reactions: Allergies Allergy/AdvReac Type Severity Reaction Status Date / Time NSAIDS (Non-Steroidal AdvReac Intermediate GI bleed Verified 05/30/19 15:43 Anti-Inflamma - Social History Does the pt smoke?: No Smoking Status: Never smoker Does the pt drink ETOH?: No Does the pt have substance abuse?: No - Immunizations Immunizations are current?: Yes Immunizations: TDAP >10years/unknown - POLST Patient has POLST: No PD ED PE NORMAL - Vitals Vital signs reviewed: Yes - General General: Alert and oriented X 3, No acute distress - HEENT HEENT: PERRL, EOMI - Neck Neck: Supple, no meningeal sign, No bony TTP - Cardiac Cardiac: RRR, No murmur - Respiratory Respiratory: No respiratory distress, Clear bilaterally - Abdomen Abdomen: Normal bowel sounds, Soft, Non tender - Back Back: No CVA TTP, No spinal TTP - Derm Derm: Normal color, Warm and dry - Extremities Extremities: No edema, No calf tenderness / cord - Neuro Neuro: Alert and oriented X 3, Normal speech Results - Vitals Vitals: Vital Signs - 24 hr 05/30/19 05/30/19 05/30/19 15:40 16:03 16:30 Temperature 35.8 C L Heart Rate 96 90 77 Respiratory 19 14 12 Rate Blood Pressure 161/94 H 151/92 H 147/86 H O2 Saturation 99 100 99 05/30/19 05/30/19 05/30/19 17:00 17:30 18:00 Temperature Heart Rate 76 79 70 Respiratory 14 14 14 Rate Blood Pressure 142/88 H 150/92 H 154/96 H O2 Saturation 100 98 100 05/30/19 05/30/19 18:30 19:00 Temperature Heart Rate 76 70 Respiratory 13 13 Rate Blood Pressure 159/92 H 165/108 H O2 Saturation 99 99 Oxygen O2 Source Room air - EKG (time done) 1543 Rate: Rate (enter#) (87) Rhythm: NSR, LAE [place]: LAD Intervals: Normal [place] QRS: Normal Ischemia: Normal ST segments - Labs Labs: Laboratory Tests 05/30/19 05/30/19 05/30/19 16:06 16:06 16:06 WBC 18.8 H RBC 4.78 Hgb 13.8 L Hct 42.3 MCV 88.5 MCH 28.9 MCHC 32.6 RDW 13.0 Plt Count 360 MPV 9.1 Neut # (Auto) 16.7 H Lymph # (Auto) 1.0 L [place] # (Auto) 0.8 Eos # (Auto) 0.0 Baso # (Auto) 0.1 Absolute Nucleated RBC 0.00 Nucleated RBC % 0.0 Sodium 140 Potassium 3.7 Chloride 103 Carbon Dioxide 24 Anion Gap 13.0 BUN 27 H Creatinine 1.6 H Estimated GFR (MDRD) 44 L Glucose 133 H Calcium 9.7 Total Bilirubin 0.7 AST 21 ALT 21 Alkaline Phosphatase 97 Troponin I High Sens 8.9 Total Protein 8.1 Albumin 5.0 Globulin 3.1 Albumin/Globulin Ratio 1.6 Lipase 144 H - Rads (name of study) 1v chest Radiology: EMP read contemporaneously (normal) CT AAP Radiology: EMP read contemporaneously (No acute disease, status post Gastric bypass. Stable splenic hypodensities.) PD MEDICAL DECISION MAKING - ED course ED course: 59-year-old gentleman with upper abdominal pain radiating to the left shoulder reminiscent of prior gallstone pancreatitis. But he has had his gallbladder out. He is also had a gastric bypass. After a single dose of Dilaudid and a GI cocktail he was pain-free. Nontender on reevaluation. Work-up demonstrates mildly elevated lipase, could be pancreatitis or ulcer. Also white count. 59-year-old gentleman with history of remote gastric bypass and subacutely a cholecystectomy for pancreatitis. He does not drink alcohol. CT showed no acute changes. My suspicion is that given the lack of pink otitis on CT and the persistent improvement of his pain after single dose of Dilaudid after several hours and a GI cocktail, this is more likely to be ulcer than pancreatitis. He passed an oral challenge here. We will put him back on a twice daily PPI. Departure - Departure Disposition: 01 Home, Self Care Clinical Impression: S/P gastric bypass, Epigastric abdominal pain Condition: Good Record reviewed to determine appropriate education?: Yes Instructions: ED Abdominal Pain Unkn Cause Male Prescriptions: Omeprazole 20 mg PO BID #60 capsule. Comments: As discussed, the constellation of symptoms and findings today I think is most consistent with ulcer disease as opposed to pancreatitis. Return for new worsening symptoms. If symptoms are persistent talk with your doctor about referral for upper endoscopy.
--- NOTE | 2019-05-30 16:14 | XRAY Report ---
Reason: CP Procedure Date: 05/30/2019 Accession Number: [id number] / [id number] Procedure: XR - Chest 1 View X-Ray CPT Code: 59679 FULL RESULT: EXAM: CHEST RADIOGRAPHY EXAM DATE: 05/30/2019 03:56 PM. CLINICAL HISTORY: CP. COMPARISON: None. TECHNIQUE: 1 view. FINDINGS: Lungs/Pleura: No focal opacities evident. No pleural effusion. No pneumothorax. Low lung volumes. Mediastinum: Within exam limitations, the cardiomediastinal contour is normal. Other: None. IMPRESSION: No acute cardiopulmonary abnormality. RADIA
[2019-05-30 16:30] LABS: BASOPHILS # (AUTO) 0.1 10^3/uL (0.0-0.1); BASOPHILS % (AUTO) 0.3 %; EOSINOPHILS % (AUTO) 0.2 %; HGB - HEMOGLOBIN 13.8 g/dL (14.0-18.0); LYMPHOCYTES % (AUTO) 5.3 %; MEAN CORPUSCULAR HEMOGLOBIN 28.9 pg (27.0-31.0); MEAN CORPUSCULAR HGB CONC 32.6 g/dL (32.0-36.0); MEAN CORPUSCULAR VOLUME 88.5 fL (80.0-94.0); MEAN PLATELET VOLUME 9.1 fL (7.4-11.4); MONOCYTES # (AUTO) 0.8 10^3/uL (0.0-1.0); NEUTROPHILS # (AUTO) 16.7 10^3/uL (1.5-6.6); NEUTROPHILS % (AUTO) 88.8 %; PLT - PLATELET COUNT 360 10^3/uL (130-450); RED BLOOD COUNT 4.78 10^6/uL (4.70-6.10); WHITE BLOOD COUNT 18.8 x10^3/uL (4.8-10.8)
[2019-05-30 16:46] LABS: ALBUMIN/GLOBULIN RATIO 1.6 (1.0-2.2); BILIRUBIN,TOTAL 0.7 mg/dL (0.2-1.0); CALCIUM 9.7 mg/dL (8.5-10.3); CREATININE 1.6 mg/dL (0.6-1.2); TOTAL PROTEIN 8.1 g/dL (6.7-8.2)
[2019-05-30] MEDS ORDERED: SODIUM CHLORIDE 0.9% 1,000 ML IV ONE (16:51)
[2019-05-30] MEDS ORDERED: IOVERSOL 320 100 ML VIAL IVP ONE ×2 (17:28→18:52)
[2019-05-30] MEDS ORDERED: IOVERSOL 320 50 ML VIAL ONE (17:28)
[2019-05-30] MEDS ORDERED: IOVERSOL 320 50 ML VIAL PO ONE (18:52)
--- NOTE | 2019-05-30 19:28 | CT Report ---
Reason: IV and PO, upper abd pain, H/O gastric bypass Procedure Date: 05/30/2019 Accession Number: [id number] / [id number] Procedure: CT - Abdomen/Pelvis W CPT Code: FULL RESULT: EXAM: CT ABDOMEN AND PELVIS EXAM DATE: 05/30/2019 06:50 PM. CLINICAL HISTORY: Abdominal pain COMPARISONS: 06/29/2017. TECHNIQUE: Routine helical CT imaging was performed through the abdomen and pelvis. IV contrast: 100 cc Optiray 320. Enteric contrast: Positive. Reconstructions: Coronal and sagittal. In accordance with CT protocol optimization, one or more of the following dose reduction techniques were utilized for this exam: automated exposure control, adjustment of mA and/or KV based on patient size, or use of iterative reconstructive technique. FINDINGS: Lung Bases: Unremarkable. Liver: Normal. No masses. Gallbladder/Bile Ducts: The gallbladder is surgically absent. Spleen: There are multiple hypodensities within the spleen. These could represent hemangiomas. They are stable. Pancreas: Normal. Adrenal Glands: Normal. Kidneys: Normal. No masses or hydronephrosis. Peritoneal Cavity/Bowel: Patient has undergone gastric bypass. CT appearance of the bypass anatomy is unremarkable. Contrast passes beyond the jejunojejunal anastomosis by the time of imaging. There is moderate volume of stool within colon. No acute colonic abnormalities are seen. There is no intraperitoneal free air or free fluid. No enlarged mesenteric or retroperitoneal lymph nodes. The appendix is normal. Pelvic Organs: No acute pelvic organ abnormalities are seen. Vasculature: No acute vascular abnormalities. Bones: No significant abnormality. Other: None. IMPRESSION: 1. Patient has undergone gastric bypass. Stable CT appearance of the bypass anatomy. No evidence of obstruction. 2. Stable hypodensities within the spleen. 3. The gallbladder is surgically absent. 4. There is no evidence of appendicitis. RADIA
[2019-05-30] MEDS ORDERED: HYDROcod/ACET 5/325 Prepack 4 PO STA (19:35)
[2019-05-30] MEDS ORDERED: PANTOPRAZOLE 40 MG VIAL IVP STA (19:35)
[2019-05-30 20:04] VITALS: BP 142/77
== END 2019-05-30 20:08 | disposition home or self-care (01) ==
LOC: ED 15:38
DX: R10.13 Epigastric pain (principal); Z98.84 Bariatric surgery status; I10 Essential (primary) hypertension
CPT/HCPCS: 36415; 71045; 74177; 80053; 83690; 84484; 85025; 93005; 96361; 96374; 96375; 99284; A9270; J1170; Q9967

== ENCOUNTER 2019-06-01 13:18 | Emergency (ER) | payer OTHER ==
[2019-06-01 13:57] LABS: BASOPHILS # (AUTO) 0.1 10^3/uL (0.0-0.1); BASOPHILS % (AUTO) 0.4 %; EOSINOPHILS # (AUTO) 0.1 10^3/uL (0.0-0.7); EOSINOPHILS % (AUTO) 0.5 %; HGB - HEMOGLOBIN 13.3 g/dL (14.0-18.0); LYMPHOCYTES # (AUTO) 1.7 10^3/uL (1.5-3.5); LYMPHOCYTES % (AUTO) 12.3 %; MEAN CORPUSCULAR HGB CONC 32.8 g/dL (32.0-36.0); MEAN CORPUSCULAR VOLUME 88.5 fL (80.0-94.0); MEAN PLATELET VOLUME 8.9 fL (7.4-11.4); MONOCYTES # (AUTO) 0.7 10^3/uL (0.0-1.0); NEUTROPHILS # (AUTO) 11.4 10^3/uL (1.5-6.6); NEUTROPHILS % (AUTO) 80.7 %; PLT - PLATELET COUNT 336 10^3/uL (130-450); RED BLOOD COUNT 4.59 10^6/uL (4.70-6.10); RED CELL DISTRIBUTION WIDTH 13.1 % (12.0-15.0); WHITE BLOOD COUNT 14.1 x10^3/uL (4.8-10.8)
[2019-06-01 14:12] LABS: ALBUMIN 4.5 g/dL (3.2-5.5); ALBUMIN/GLOBULIN RATIO 1.5 (1.0-2.2); BILIRUBIN,TOTAL 0.6 mg/dL (0.2-1.0); CALCIUM 9.5 mg/dL (8.5-10.3); CREATININE 1.1 mg/dL (0.6-1.2); TOTAL PROTEIN 7.6 g/dL (6.7-8.2)
[2019-06-01] MEDS ORDERED: MAG HYDROX/AL HYDROX/SIMETH 30 ML UDC PO STA (14:26)
[2019-06-01] MEDS ORDERED: LIDOCAINE VISCOUS 2% 15 ML UDC MM STA (14:26)
--- NOTE | 2019-06-01 14:33 | ED Physician Documentation ---
PD HPI ABD PAIN - Stated complaint Stated Complaint: CHEST PX - Chief complaint Chief Complaint: Cardiac - History obtained from History obtained from: Patient - History of Present Illness Timing - onset: Other (59-year-old gentleman with remote gastric bypass and more recent but still subacute cholecystectomy. I saw him a couple of days ago for abdominal and chest pain. He had excellent relief with a GI cocktail and Dilaudid. He had a mildly elevated lipase, a white count of 18,000, and a CT of his abdomen without acute changes. He was doing better yesterday, but overnight last night and today had more significant pain. Its in epigastric pain radiating to the left shoulder and back. Its associated with diaphoresis but no shortness of breath. Eating does not seem to change it at all. He feels like it is hard to localize. No calf pain or pedal edema.) Review of Systems Ten Systems: 10 systems reviewed and negative Constitutional: denies: Fever, Chills Nose: denies: Rhinorrhea / runny nose, Congestion Cardiac: reports: Chest pain / pressure. denies: Palpitations, Pedal edema, Calf pain Respiratory: denies: Dyspnea, Cough, Hemoptysis, Wheezing PD PAST MEDICAL HISTORY - Past Medical History Past Medical History: Yes Cardiovascular: Hypertension, Other Respiratory: None Endocrine/Autoimmune: None GI: GERD, GI bleed, Ulcers, Pancreatitis, Other : None HEENT: Chronic vision loss Psych: Other Musculoskeletal: Chronic back pain Derm: Other - Past Surgical History Past Surgical History: Yes General: Gastric surgery, Colonoscopy, EGD Ortho: Carpal Tunnel surgery, Other HEENT: Tonsil/Adenoidectomy Derm: Skin cancer surgery - Present Medications Home Medications: Ambulatory Orders Medication Instructions Recorded Confirmed Vitamin B Complex/Folic Acid 1 tab PO DAILY 02/03/16 01/10/19 [Vitamin B-100 Complex Tablet] Nifedipine [Nifedipine ER] 3 tab PO DAILY 03/14/18 01/10/19 traMADol [Ultram] 50 mg PO Q4-6H PRN 06/13/18 01/10/19 Cyclobenzaprine [Flexeril] 10 mg PO TID PRN 01/10/19 01/10/19 Multivitamin [Daily Multiple 1 each PO DAILY 01/10/19 01/10/19 Vitamin] Omeprazole 20 mg PO BID #60 capsule. 09/18/19 Oxycodone HCl/Acetaminophen 1 - 2 each PO Q6H PRN #14 tablet 06/01/19 [Percocet 5-325 mg Tablet] Sucralfate [Carafate] 1 gm PO ACHS #60 tablet 06/01/19 - Allergies Allergies/Adverse Reactions: Allergies Allergy/AdvReac Type Severity Reaction Status Date / Time NSAIDS (Non-Steroidal AdvReac Intermediate GI bleed Verified 06/01/19 13:25 Anti-Inflamma - Social History Does the pt smoke?: No Smoking Status: Never smoker Does the pt drink ETOH?: No Does the pt have substance abuse?: No - Immunizations Immunizations are current?: Yes Immunizations: TDAP >10years/unknown - POLST Patient has POLST: No PD ED PE NORMAL - Vitals Vital signs reviewed: Yes - General General: Alert and oriented X 3, No acute distress - HEENT HEENT: PERRL, EOMI - Neck Neck: Supple, no meningeal sign, No bony TTP - Cardiac Cardiac: RRR, No murmur - Respiratory Respiratory: No respiratory distress, Clear bilaterally - Abdomen Abdomen: Non tender - Derm Derm: Normal color, Warm and dry, No rash - Extremities Extremities: No edema, No calf tenderness / cord - Neuro Neuro: Alert and oriented X 3, Normal speech Results - Vitals Vitals: Vital Signs - 24 hr 06/01/19 06/01/19 13:25 14:42 Temperature 36.5 C Heart Rate 67 66 Respiratory 16 18 Rate Blood Pressure 135/79 H 148/88 H O2 Saturation 98 97 Oxygen O2 Source Room air - EKG (time done) 1321 Rate: Rate (enter#) (67) Rhythm: NSR [place]: LAD Intervals: Normal [place] QRS: Normal Ischemia: Normal ST segments Computer interpretation: Agree with computer - Labs Labs: Laboratory Tests 06/01/19 06/01/19 06/01/19 13:25 13:51 13:51 WBC 14.1 H RBC 4.59 L Hgb 13.3 L Hct 40.6 L MCV 88.5 MCH 29.0 MCHC 32.8 RDW 13.1 Plt Count 336 MPV 8.9 Neut # (Auto) 11.4 H Lymph # (Auto) 1.7 [place] # (Auto) 0.7 Eos # (Auto) 0.1 Baso # (Auto) 0.1 Absolute Nucleated RBC 0.00 Nucleated RBC % 0.0 Sodium 141 Potassium 4.3 Chloride 102 Carbon Dioxide 28 Anion Gap 11.0 BUN 24 H Creatinine 1.1 Estimated GFR (MDRD) 69 L Glucose 84 Calcium 9.5 Total Bilirubin 0.6 AST 19 ALT 19 Alkaline Phosphatase 93 Troponin I High Sens 6.3 Total Protein 7.6 Albumin 4.5 Globulin 3.1 Albumin/Globulin Ratio 1.5 Lipase 134 H - Rads (name of study) CTA chest Radiology: EMP read contemporaneously (No vascular issue. Minor fat stranding at the outpouching of the GJ anastomosis suspicious for active ulcer disease.) PD MEDICAL DECISION MAKING - ED course ED course: 59-year-old gentleman status post remote gastric bypass bounces back with epigastric and chest pain felt to be likely related to ulcer on prior visits, diagnostics were negative except for an elevated white count and a modest elevation of lipase. He is now been on omeprazole for a day, got a shot of Protonix in the department the other day. Hydrocodone has not been helpful. He had complete relief with a milligram of Dilaudid here. Dissection was considered given that he now has chest pain radiating to the back and the CT of the chest was negative for same but did demonstrate findings consistent with a ctive ulcer disease. He is advised to double his omeprazole to twice a day and we are adding sucralfate. Departure - Departure Disposition: 01 Home, Self Care Clinical Impression: S/P gastric bypass, Epigastric abdominal pain, Ulcer Chest pain Qualifiers: Chest pain type: unspecified Qualified Code(s): R07.9 - Chest pain, unspecified Condition: Good Record reviewed to determine appropriate education?: Yes Instructions: ED PUD Vs Gastritis Prescriptions: Oxycodone HCl/Acetaminophen [Percocet 5-325 mg Tablet] 1 - 2 each PO Q6H PRN #14 tablet PRN Reason: pain Sucralfate [Carafate] 1 gm PO ACHS #60 tablet Comments: Today your CAT scan demonstrates likely ulcer disease at the gastrojejunal junct ion. Return if pain is worse or severe. Increase your omeprazole to twice a day and add the sucralfate. As a reminder you can't take the sucralfate within an hour of your other medications. Follow-up with your doctor, next available appointment.
[2019-06-01] MEDS ORDERED: HYDROmorphone 1 MG/ML CARPUJECT IVP STA (14:51)
[2019-06-01] MEDS ORDERED: IOVERSOL 320 100 ML VIAL IVP ONE ×2 (15:07→15:35)
--- NOTE | 2019-06-01 16:04 | CT Report ---
Reason: aorta protocol, chest pain Procedure Date: 06/01/2019 Accession Number: [id number] / [id number] Procedure: CT - ANGIO CHEST W/WO CPT Code: FULL RESULT: EXAM: CT ANGIOGRAM CHEST WITH AND WITHOUT CONTRAST EXAM DATE: 06/01/2019 03:29 PM. CLINICAL HISTORY: Chest pain. COMPARISON: ABDOMEN/PELVIS W/ 05/30/2019 6:48 PM. TECHNIQUE: Routine helical imaging was performed through the chest in the pulmonary arterial phase and without contrast. IV Contrast: 90 mL Optiray 320. Reconstructions: Coronal 3-D MIP reconstructions.Sagittal and coronal. In accordance with CT protocol optimization, one or more of the following dose reduction techniques were utilized for this exam: automated exposure control, adjustment of mA and/or KV based on patient size, or use of iterative reconstructive technique. FINDINGS: Vasculature: Normal caliber thoracic aorta demonstrates no acute aortic pathology including no intramural hematoma or dissection. Conventional origin anatomy of the coronary arteries is seen with mild to moderate calcified coronary artery disease present. Conventional origin anatomy of the aortic arch branches is seen. Visualized aortic arch branch vessels are diffusely patent. There are no filling defects in the pulmonary arteries to suggest pulmonary embolism. Lungs/Pleura: No consolidation, nodules, or edema. No effusions or pneumothorax. Mediastinum: Normal. No cardiac enlargement or adenopathy. Thoracic Aorta: Unremarkable. Upper Abdomen: Postoperative changes related to gastric bypass is seen. There is new fat stranding and small outpouching at the gastrojejunal anastomosis suspicious for ulcer (image 132/6). Finding has changed compared with 05/30/2019. Other: None. IMPRESSION: 1. No dissection or pulmonary embolism. 2. Status post gastric bypass with new minor fat stranding and outpouching at the gastrojejunal anastomosis. Finding is suspicious for active ulcer disease. RADIA
[2019-06-01 16:20] VITALS: BP 145/90
== END 2019-06-01 16:19 | disposition home or self-care (01) ==
LOC: ED 13:18
DX: K25.9 Gastric ulcer, unspecified as acute or chronic, without hemorrhage or perforation (principal); Z98.84 Bariatric surgery status; Z98.0 Intestinal bypass and anastomosis status; R07.9 Chest pain, unspecified; I10 Essential (primary) hypertension
CPT/HCPCS: 36415; 71275; 80053; 83690; 84484; 85025; 93005; 96374; 99284; A9270; J1170; Q9967

== ENCOUNTER 2019-08-07 09:45 | Day surgery (SDC) | payer OTHER ==
[2019-08-07] MEDS ORDERED: LACTATED RINGERS 1,000 ML IV ONE (09:50)
[2019-08-07] MEDS ORDERED: LIDO GARGLE 30 ML BOTTLE ONE (10:24)
[2019-08-07] MEDS ORDERED: MIDAZOLAM 2 MG/2 ML VIAL IVP ONE (10:51)
[2019-08-07] MEDS ORDERED: fentaNYL 250 MCG/5 ML VIAL IVP ONE (10:51)
[2019-08-07 11:45] VITALS: BP 141/94
== END 2019-08-07 09:46 | disposition home or self-care (01) ==
LOC: SDS 09:45
PROVIDERS: ATTEND Internal Medicine Gastroenterology
PROC: 0DBA8ZX Excision of Jejunum, Via Natural or Artificial Opening Endoscopic, Diagnostic (ICD-10-PCS; principal; 2019-08-07 11:15)
DX: K28.9 Gastrojejunal ulcer, unspecified as acute or chronic, without hemorrhage or perforation (principal); E66.9 Obesity, unspecified; I10 Essential (primary) hypertension; Z79.899 Other long term (current) drug therapy; Z98.84 Bariatric surgery status; Z86.19 Personal history of other infectious and parasitic diseases; Z87.19 Personal history of other diseases of the digestive system; Z90.49 Acquired absence of other specified parts of digestive tract; Z86.39 Personal history of other endocrine, nutritional and metabolic disease; Z86.69 Personal history of other diseases of the nervous system and sense organs; Z87.891 Personal history of nicotine dependence; Z68.30 Body mass index [BMI] 30.0-30.9, adult
CPT/HCPCS: 43239; 87081; A9270; J3010; J7120

== ENCOUNTER 2020-05-23 09:51 | Emergency (ER) | payer OTHER ==
[2020-05-23 10:29] LABS: BASOPHILS # (AUTO) 0.1 10^3/uL (0.0-0.1); BASOPHILS % (AUTO) 0.4 %; EOSINOPHILS # (AUTO) 0.1 10^3/uL (0.0-0.7); EOSINOPHILS % (AUTO) 0.9 %; HGB - HEMOGLOBIN 14.6 g/dL (14.0-18.0); LYMPHOCYTES # (AUTO) 1.6 10^3/uL (1.5-3.5); LYMPHOCYTES % (AUTO) 11.1 %; MEAN CORPUSCULAR HEMOGLOBIN 29.6 pg (27.0-31.0); MEAN CORPUSCULAR HGB CONC 32.3 g/dL (32.0-36.0); MEAN CORPUSCULAR VOLUME 91.7 fL (80.0-94.0); MEAN PLATELET VOLUME 9.7 fL (7.4-11.4); MONOCYTES # (AUTO) 0.8 10^3/uL (0.0-1.0); MONOCYTES % (AUTO) 5.4 %; NEUTROPHILS # (AUTO) 11.3 10^3/uL (1.5-6.6); NEUTROPHILS % (AUTO) 81.3 %; PLT - PLATELET COUNT 263 10^3/uL (130-450); RED BLOOD COUNT 4.93 10^6/uL (4.70-6.10); RED CELL DISTRIBUTION WIDTH 13.1 % (12.0-15.0); WHITE BLOOD COUNT 13.9 x10^3/uL (4.8-10.8)
[2020-05-23 10:35] LABS: ALBUMIN 4.9 g/dL (3.2-5.5); ALBUMIN/GLOBULIN RATIO 1.9 (1.0-2.2); BILIRUBIN,TOTAL 0.8 mg/dL (0.2-1.0); CALCIUM 9.8 mg/dL (8.5-10.3); CREATININE 0.9 mg/dL (0.6-1.2); TOTAL PROTEIN 7.5 g/dL (6.7-8.2)
--- NOTE | 2020-05-23 10:39 | ED Physician Documentation ---
History of Present Illness - Stated complaint Stated Complaint: VOMITING, VERTIGO - Chief complaint Chief Complaint: Cardiac - History obtained from History obtained from: Patient - History of Present Illness Timing: Last night - Additonal information Additional information: 60-year-old male status post gastric bypass has developed episodic vertigo and last night he developed vomiting with this as well. He had significant vertigo last night he feels he has some hearing loss as well. He has recently gone in to see his primary care doctor after he developed a bout of dizziness 2 weeks ago and his blood pressure medication has been changed to lisinopril he is increased the dose from 20 mg to 40 mg and he still does not have control of his blood pressure. He felt that he had good control previously with use of the nifedipine. He stopped the nifedipine because he felt it might help with his vertigo. He has been off of it 2 weeks and has an episode of vertigo. Review of Systems Constitutional: denies: Fever Eyes: denies: Decreased vision Ears: reports: Loss of hearing. denies: Ear pain Nose: denies: Rhinorrhea / runny nose, Congestion Throat: denies: Sore throat Cardiac: denies: Chest pain / pressure, Palpitations Respiratory: denies: Dyspnea, Cough GI: reports: Nausea, Vomiting. denies: Abdominal Pain : denies: Dysuria, Frequency Skin: denies: Rash Musculoskeletal: denies: Neck pain, Back pain, Extremity pain Neurologic: denies: Generalized weakness, Focal weakness, Numbness PD PAST MEDICAL HISTORY - Past Medical History Cardiovascular: Hypertension, Other Respiratory: None, Sleep apnea Endocrine/Autoimmune: None GI: GERD, GI bleed, Ulcers, Colon polyps, Pancreatitis, Other : None HEENT: Chronic vision loss Psych: Other Musculoskeletal: Chronic back pain Derm: Other - Past Surgical History Past Surgical History: Yes General: Cholecystectomy, Gastric surgery, Colonoscopy, EGD Ortho: Carpal Tunnel surgery, Other HEENT: Tonsil/Adenoidectomy Derm: Skin cancer surgery - Present Medications Home Medications: Ambulatory Orders Medication Instructions Recorded Confirmed Vitamin B Complex/Folic Acid 1 tab PO DAILY 02/03/16 12/11/19 [Vitamin B-100 Complex Tablet] NIFEdipine [Nifedipine ER] 3 tab PO DAILY 03/14/18 12/11/19 traMADol [Ultram] 50 mg PO Q4-6H PRN 06/13/18 12/11/19 Cyclobenzaprine [Flexeril] 10 mg PO TID PRN 01/10/19 12/11/19 Multivitamin [Daily Multiple 1 each PO DAILY 01/10/19 12/11/19 Vitamin] Omeprazole 20 mg PO BID #60 capsule. 05/30/19 12/11/19 Oxycodone HCl/Acetaminophen 1 - 2 each PO Q6H PRN #14 tablet 06/01/19 12/11/19 [Percocet 5-325 mg Tablet] Sucralfate [Carafate] 1 gm PO ACHS #60 tablet 06/01/19 12/11/19 Meclizine [Antivert] 25 mg PO Q6H PRN #20 tablet 05/23/20 - Allergies Allergies/Adverse Reactions: Allergies Allergy/AdvReac Type Severity Reaction Status Date / Time NSAIDS (Non-Steroidal AdvReac Intermediate GI bleed Verified 05/23/20 10:03 Anti-Inflamma - Social History Does the pt smoke?: No Smoking Status: Never smoker Does the pt drink ETOH?: No Does the pt have substance abuse?: No - Immunizations Immunizations are current?: Yes Immunizations: TDAP >10years/unknown - POLST Patient has POLST: No PD ED PE NORMAL - Vitals Vital signs reviewed: Yes (Hypertensive marked) - General General: Alert and oriented X 3, No acute distress, Well developed/nourished - HEENT HEENT: Atraumatic, PERRL, EOMI, Ears normal, Moist mucous membranes, Pharynx benign, Dentition benign, Other (Minimal nystagmus is present bilaterally) - Neck Neck: Supple, no meningeal sign, No bony TTP - Cardiac Cardiac: RRR, No murmur - Respiratory Respiratory: No respiratory distress, Clear bilaterally - Abdomen Abdomen: Normal bowel sounds, Soft, Non tender, Non distended, No organomegaly - Back Back: No CVA TTP, No spinal TTP - Derm Derm: Normal color, Warm and dry, No rash - Extremities Extremities: No deformity, No edema - Neuro Neuro: Alert and oriented X 3, [employer] combat skills 2-12 intact, No motor deficit, No sensory deficit, Normal speech Eye Opening: Spontaneous Motor: Obeys Commands Verbal: Oriented GCS Score: 15 - Psych Psych: Normal mood, Normal affect Results - Vitals Vitals: Vital Signs - 24 hr 05/23/20 05/23/20 05/23/20 10:03 10:29 12:07 Temperature 36.8 C 37.0 C Heart Rate 60 52 L 51 L Respiratory 16 16 17 Rate Blood Pressure 210/109 H 193/106 H 190/98 H O2 Saturation 99 99 98 Oxygen O2 Source Room air - EKG (time done) 1006 Rate: Rate (enter#) (52) Rhythm: NSR [place]: LAD Compare to prior EKG: Unchanged from prior EKG (SPT 06-01-2019 no changes) Computer interpretation: Agree with computer - Labs Labs: Laboratory Tests 05/23/20 05/23/20 05/23/20 10:00 10:00 10:00 WBC 13.9 H RBC 4.93 Hgb 14.6 Hct 45.2 MCV 91.7 MCH 29.6 MCHC 32.3 RDW 13.1 Plt Count 263 MPV 9.7 Neut # (Auto) 11.3 H Lymph # (Auto) 1.6 [place] # (Auto) 0.8 Eos # (Auto) 0.1 Baso # (Auto) 0.1 Absolute Nucleated RBC 0.00 Nucleated RBC % 0.0 Sodium 141 Potassium 3.8 Chloride 107 Carbon Dioxide 24 Anion Gap 10.0 BUN 24 H Creatinine 0.9 Estimated GFR (MDRD) 86 L Glucose 99 Calcium 9.8 Total Bilirubin 0.8 AST 18 ALT 27 Alkaline Phosphatase 79 Troponin I High Sens 7.8 Total Protein 7.5 Albumin 4.9 Globulin 2.6 Albumin/Globulin Ratio 1.9 Lipase 45 - Rads (name of study) chest Radiology: Prelim report reviewed (Impression: No acute cardiopulmonary pathology.), EMP read indepedently, See rad report head CT Radiology: Prelim report reviewed (Impression: No acute intracranial disease process.), EMP read indepedently, See rad report Procedures - IVC sono (time) 1030 Bedside IVC sono: IVC measures (cm) (1.67), [place] PD MEDICAL DECISION MAKING - ED course Complexity details: reviewed old records, reviewed results, re-evaluated patient , considered differential, d/w patient ED course: 60-year-old male with an episode of severe vertigo last night. He has recovered and has no specific symptoms today with the exception that, he feels that if he moves his head too fast he will get some vertigo. He has not tried Alli maneuvers. His blood pressure is elevated again today. Departure - Departure Disposition: 01 Home, Self Care Clinical Impression: Labyrinthitis, acute Qualifiers: Laterality: unspecified laterality Qualified Code(s): H83.09 - Labyrinthitis, unspecified ear Hypertension Qualifiers: Hypertension type: essential hypertension Qualified Code(s): I10 - Essential (primary) hypertension Condition: Stable Instructions: ED Labyrinthitis, ED Meniere Disease, ED Hypertension Conf Out Of Control Follow-Up: MATILDE BROTHERS DO [Primary Care Provider] - [facility] [Provider Group] Prescriptions: Meclizine [Antivert] 25 mg PO Q6H PRN #20 tablet PRN Reason: Dizziness Comments: Try the Alli maneuvers for the dizziness as described in the handout. My recommendation is to discontinue the lisinopril and restart your nifedipine at its prior successful dose. Follow-up with your primary care doctor.
--- NOTE | 2020-05-23 10:40 | XRAY Report ---
PROCEDURE: Chest 1 View X-Ray INDICATIONS: Chest pain TECHNIQUE: One view of the chest was acquired. COMPARISON: 05/30/2019 FINDINGS: Surgical changes and devices: None. Lungs and pleura: No pleural effusions or pneumothorax. Lungs are clear. Mediastinum: Mediastinal contours appear normal. Heart size is normal. Bones and chest wall: No suspicious bony lesions. Overlying soft tissues appear unremarkable. IMPRESSION: No acute cardiopulmonary pathology. Reviewed by: Luis M Angel MD on 05/23/2020 10:39 AM PDT Approved by: Luis M Angel MD on 05/23/2020 10:39 AM PDT Station ID: [id number]
--- NOTE | 2020-05-23 11:41 | CT Report ---
PROCEDURE: HEAD WO INDICATIONS: vertigo, vomiting TECHNIQUE: Noncontrast 4.5 mm thick angled axial sections acquired from the foramen magnum to the vertex. For r adiation dose reduction, the following was used: automated exposure control, adjustment of mA and/or kV according to patient size. COMPARISON: None. FINDINGS: Image quality: Excellent. CSF spaces: Basal cisterns are patent. No extra-axial fluid collections. Ventricles are normal in size and shape. Brain: No midline shift. No intracranial masses or hemorrhage. Larson-white matter interface is norm al. Skull and face: Calvarium and visualized facial bones are intact, without suspicious lesions. Sinuses: Visualized sinuses and mastoids are clear. IMPRESSION: No acute intracranial disease process. Reviewed by: Mehnaz Peng MD, PhD on 05/23/2020 11:40 AM PDT Approved by: Mehnaz Peng MD, PhD on 05/23/2020 11:40 AM PDT Station ID: [id number]
[2020-05-23] MEDS ORDERED: MECLIZINE 12.5 MG TABLET PO STA (12:09)
[2020-05-23 12:34] VITALS: BP 155/99
== END 2020-05-23 12:34 | disposition home or self-care (01) ==
LOC: ED 09:51
DX: H83.09 Labyrinthitis, unspecified ear (principal); I10 Essential (primary) hypertension; Z98.0 Intestinal bypass and anastomosis status
CPT/HCPCS: 36415; 70450; 71045; 80053; 83690; 84484; 85025; 93005; 99284; A9270

== ENCOUNTER 2021-03-11 07:42 | Outpatient (CLI) | payer OTHER | END 2021-03-11 07:43 | disposition home or self-care (01) | LOC: DI 07:42 | PROVIDERS: ATTEND Family Medicine | DX: I10 Essential (primary) hypertension (principal); R60.0 Localized edema | CPT/HCPCS: 93306 ==

== ENCOUNTER 2021-07-08 09:24 | Outpatient (CLI) | payer OTHER ==
[2021-07-08] MEDS ORDERED: GADOBUTROL 15 MMOL/15 ML VIAL ONE (09:34)
--- NOTE | 2021-07-08 10:53 | MRI Report ---
PROCEDURE: Brain W/WO INDICATIONS: VERTIGO CONTRAST: IV CONTRAST: Gadavist ml: 9 TECHNIQUE: Noncontrast axial T1 spin echo, axial T2 fast spin echo, sagittal and axial FLAIR, coronal T2 fast sp in echo, axial gradient echo, axial diffusion and ADC through the brain. After the administration of contrast, axial and coronal T1 spin echo with fat saturation through the brain. COMPARISON: None. FINDINGS: There is artifact in the postcontrast images producing susceptibility and distortion/warping in the r ight posterior cerebral cortex and in the posterior fossa. This limits evaluation. Within the limitat ion created by this artifact, there is no abnormal enhancement. These regions of the brain demonstrat e normal signal intensity on the remaining sequences. There is no evidence of mass effect or midline shift. No restricted diffusion to indicate recent ischemia. The major intracranial vascular flow-rela stephania signal voids are maintained. Midline structures are normal in configuration. Mild global volume l oss and chronic microvascular ischemic changes. No significant brain parenchymal FLAIR signal abnorma lity otherwise. No pathologic intracranial susceptibility identified on gradient echo images. No deborah s orbital abnormality. Paranasal sinuses and mastoid air cells are predominantly clear. IMPRESSION: No acute intracranial abnormality. No definite abnormal enhancement, with caveat that th ere is limitation due to artifact present on the postcontrast sequences as described above. Reviewed by: Rubio San MD on 07/08/2021 10:51 AM PDT Approved by: Rbuio San MD on 07/08/2021 10:51 AM PDT Station ID: [id number]
[2021-07-08] MEDS ORDERED: GADOBUTROL 15 MMOL/15 ML VIAL IVP ONE (15:16)
== END 2021-07-08 09:25 | disposition home or self-care (01) ==
LOC: DI 09:24
PROVIDERS: ATTEND Family Medicine
DX: H81.10 Benign paroxysmal vertigo, unspecified ear (principal); R44.9 Unspecified symptoms and signs involving general sensations and perceptions
CPT/HCPCS: 70553; A9585

== ENCOUNTER 2021-07-17 11:04 | Day surgery (SDC) | payer OTHER ==
[2021-07-17] MEDS ORDERED: LACTATED RINGERS 1,000 ML IV ONE ×2 (11:28→14:45)
--- NOTE | 2021-07-17 11:45 | ANESTHESIA ---
Pre-Anesthesia VS, & Labs - Diagnosis Hx of ulcers, Screening - Procedure Colonoscopy Vital Signs: Temp Pulse Resp BP Pulse Ox 36.4 C L 55 L 11 L 137/89 H 99 07/17/21 11:19 07/17/21 11:19 07/17/21 11:19 07/17/21 11:19 07/17/21 11:19 Height: 5 ft 6 in Weight (kg): 97 kg Body Mass Index: 34.4 BMI Classification: Obese - NPO >8 hours - Lab Results Lab results reviewed: Yes Home Medications and Allergies Vitamin B Complex/Folic Acid [Vitamin B-100 Complex Tablet] 1 tab PO DAILY 02/03/16 NIFEdipine [Nifedipine ER] 3 tab PO DAILY 03/14/18 traMADol [Ultram] 50 mg PO Q4-6H PRN 06/13/18 Cyclobenzaprine [Flexeril] 10 mg PO TID PRN 01/10/19 Multivitamin [Daily Multiple Vitamin] 1 each PO DAILY 01/10/19 hydroCHLOROthiazide [Hydrodiuril] 25 mg PO DAILY 04/28/21 Allergies/Adverse Reactions: Allergies Allergy/AdvReac Type Severity Reaction Status Date / Time NSAIDS (Non-Steroidal AdvReac Intermediate GI bleed Verified 12/30/20 09:59 Anti-Inflamma Anes History & Medical History - Anesthetic History Anesthesia Complications: reports: No previous complications Family history of Anesthesia Complications: Denies Family history of Malignant Hyperthermia: Denies - Medical History Cardiovascular: reports: Hypertension, Other Pulmonary: reports: None, Sleep apnea Gastrointestinal: reports: GERD, GI bleed, Ulcers, Colon polyps, Pancreatitis, Other Urinary: reports: None 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) Musculoskeletal: reports: Chronic back pain Endocrine/Autoimmune: reports: None Skin: reports: Other Smoking Status: Never smoker - Surgical History General: reports: Cholecystectomy, Gastric surgery, Colonoscopy, EGD Eyes Ears Nose Throat (EENT): reports: Tonsil/Adenoidectomy Orthopedic: reports: Carpal Tunnel surgery, Other Dermatologic: reports: Skin cancer surgery Exam General: Alert, Oriented x3, Cooperative, No acute distress Dental: WNL Mouth Openin Fingerbreadth Neck Mobility: Normal Mallampati classification: II Respiratory: Lungs clear, Normal breath sounds, No respiratory distress, No accessory muscle use Cardiovascular: Regular rate, Normal S1, Normal S2, No murmurs Plan Anesthesia Type: General, Total IV Consent for Procedure(s) Verified and Reviewed: Yes Code Status: Attempt Resuscitation ASA classification: 2-Mild systemic disease Is this case an emergency?: No
[2021-07-17] MEDS ORDERED: ONDANSETRON 4 MG/2 ML VIAL ONE (11:50)
[2021-07-17] MEDS ORDERED: SCOPOLAMINE PATCH TOP SCH (12:00)
[2021-07-17] MEDS ORDERED: ONDANSETRON 4 MG/2 ML VIAL IVP SCH (12:00)
[2021-07-17] MEDS ORDERED: PROPOFOL 500 MG/50 ML 500 MG/50 ML VIAL ONE (12:47)
[2021-07-17] MEDS ORDERED: LIDOCAINE-PF 2% 10 ML AMP SUBQ ONE (12:47)
[2021-07-17] MEDS ORDERED: MIDAZOLAM 2 MG/2 ML VIAL ONE (12:50)
--- NOTE | 2021-07-17 13:41 | HISTORY & PHYSICAL EXAMINATION ---
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) Endocrine/Autoimmune: reports: None GI: reports: GERD, GI bleed, Ulcers, Colon polyps, Pancreatitis, Other : reports: None HEENT: reports: Chronic vision loss Psych: reports: Other Musculoskeletal: reports: Chronic back pain Derm: reports: Other MRSA Hx?: No - Past Surgical History General: reports: Cholecystectomy, Gastric surgery, Colonoscopy, EGD Ortho: reports: Carpal Tunnel surgery, Other HEENT: reports: Tonsil/Adenoidectomy Derm: reports: Skin cancer surgery - POLST Patient has POLST: No Meds/Allgy - Home Medications Home Medications: Ambulatory Orders Medication Instructions Recorded Confirmed Vitamin B Complex/Folic Acid 1 tab PO DAILY 02/03/16 07/17/21 [Vitamin B-100 Complex Tablet] NIFEdipine [Nifedipine ER] 3 tab PO DAILY 03/14/18 07/17/21 traMADol [Ultram] 50 mg PO Q4-6H PRN 06/13/18 07/17/21 Cyclobenzaprine [Flexeril] 10 mg PO TID PRN 01/10/19 07/17/21 Multivitamin [Daily Multiple 1 each PO DAILY 01/10/19 07/17/21 Vitamin] Omeprazole 20 mg PO BID #60 capsule. 05/30/19 07/17/21 Meclizine [Antivert] 25 mg PO Q6H PRN #20 tablet 05/23/20 07/17/21 hydroCHLOROthiazide [Hydrodiuril] 25 mg PO DAILY 04/28/21 07/17/21 - Allergies Allergies/Adverse Reactions: Allergies Allergy/AdvReac Type Severity Reaction Status Date / Time NSAIDS (Non-Steroidal AdvReac Intermediate GI bleed Verified 12/30/20 09:59 Anti-Inflamma Review of Systems - Other Findings Other Findings: 10 pt ros as above otherwise unremarkable Exam - Vital Signs Reviewed Vital Signs: Yes Vital Signs: Vital Signs x48h Temp Pulse Resp BP Pulse Ox 07/17/21 11:19 36.4 C L 55 L 11 L 137/89 H 99 - Physical Exam General Appearance: positive: No acute distress, Alert Eyes Bilateral: positive: PERRL, EOMI Neck: positive: No JVD Respiratory: positive: No respiratory distress, Breath sounds nml Cardiovascular: positive: Regular rate & rhythm Abdomen: positive: Non-tender, No distention Neurologic/Psychiatric: positive: Oriented x3 Conclusion/Plan - Problem List (1) Ulcer Conclusion/Plan: anemia and history gastric bypass marginal ulcer due for colon cancer screening plan egd and colonoscopy. parq held and consent obtained - Lab Results Lab results reviewed: Yes
[2021-07-17] MEDS ORDERED: fentaNYL 100 MCG/2 ML VIAL ONE (14:24)
[2021-07-17 15:10] VITALS: BP 125/88
--- NOTE | 2021-07-17 15:57 | ANESTHESIA POST OP EVALUATION ---
Anesthesia Post Eval - Post Anesthesia Eval Vitals: Last Vital Signs Temp 36.7 C 07/17/21 14:45 Pulse 58 L 07/17/21 15:10 Resp 14 07/17/21 15:10 BP 125/88 H 07/17/21 15:10 Pulse Ox 97 07/17/21 15:10 CV Function Including HR & BP: Stable Pain Control: Satisfactory Nausea & Vomiting: Negative Mental Status: Baseline Respiratory Status: Airway Patent Hydration Status: Satisfactory Anesthesia Complications: None
== END 2021-07-17 11:05 | disposition home or self-care (01) ==
LOC: SDS 11:04
PROVIDERS: ATTEND Surgery
PROC: 0DJ08ZZ Inspection of Upper Intestinal Tract, Via Natural or Artificial Opening Endoscopic (ICD-10-PCS; 2021-07-17)
PROC: 0DBN8ZZ Excision of Sigmoid Colon, Via Natural or Artificial Opening Endoscopic (ICD-10-PCS; principal; 2021-07-17 12:45)
PROC: 0DBL8ZZ Excision of Transverse Colon, Via Natural or Artificial Opening Endoscopic (ICD-10-PCS; 2021-07-17 12:45)
DX: Z12.11 Encounter for screening for malignant neoplasm of colon (principal); D12.3 Benign neoplasm of transverse colon; K63.5 Polyp of colon; E66.9 Obesity, unspecified; Z68.34 Body mass index [BMI] 34.0-34.9, adult; Z86.2 Personal history of diseases of the blood and blood-forming organs and certain disorders involving the immune mechanism; Z87.11 Personal history of peptic ulcer disease; K57.30 Diverticulosis of large intestine without perforation or abscess without bleeding
CPT/HCPCS: 43235; 45380; J7120

== ENCOUNTER 2021-11-25 22:12 | Emergency (ER) | payer OTHER ==
[2021-11-25 22:40] LABS: BASOPHILS # (AUTO) 0.1 10^3/uL (0.0-0.1); BASOPHILS % (AUTO) 0.4 %; EOSINOPHILS # (AUTO) 0.1 10^3/uL (0.0-0.7); EOSINOPHILS % (AUTO) 0.8 %; HCT - HEMATOCRIT 36.3 % (42.0-52.0); HGB - HEMOGLOBIN 11.7 g/dL (14.0-18.0); LYMPHOCYTES # (AUTO) 4.2 10^3/uL (1.5-3.5); LYMPHOCYTES % (AUTO) 23.7 %; MEAN CORPUSCULAR HEMOGLOBIN 29.4 pg (27.0-31.0); MEAN CORPUSCULAR HGB CONC 32.2 g/dL (32.0-36.0); MEAN CORPUSCULAR VOLUME 91.2 fL (80.0-94.0); MEAN PLATELET VOLUME 9.4 fL (7.4-11.4); MONOCYTES % (AUTO) 5.9 %; NEUTROPHILS # (AUTO) 11.9 10^3/uL (1.5-6.6); NEUTROPHILS % (AUTO) 67.9 %; PLT - PLATELET COUNT 314 10^3/uL (130-450); RED BLOOD COUNT 3.98 10^6/uL (4.70-6.10); RED CELL DISTRIBUTION WIDTH 12.3 % (12.0-15.0); WHITE BLOOD COUNT 17.5 x10^3/uL (4.8-10.8)
[2021-11-25 22:49] LABS: ALBUMIN 3.9 g/dL (3.2-5.5); ALBUMIN/GLOBULIN RATIO 1.6 (1.0-2.2); BILIRUBIN,TOTAL 0.6 mg/dL (0.2-1.0); CALCIUM 8.8 mg/dL (8.5-10.3); CREATININE 1.7 mg/dL (0.6-1.2); POTASSIUM 3.2 mmol/L (3.5-5.0); TOTAL PROTEIN 6.4 g/dL (6.7-8.2)
[2021-11-25] MEDS ORDERED: ONDANSETRON 4 MG/2 ML VIAL IVP STA (23:11)
[2021-11-25 23:38] LABS: INR 1.1 (0.8-1.2)
[2021-11-25] MEDS ORDERED: PANTOPRAZOLE 80 MG in SODIUM CHLORIDE 0.9% 100ML 100 ML IV STA (23:38)
[2021-11-25] MEDS ORDERED: PANTOPRAZOLE 40 MG VIAL IV STA (23:38)
[2021-11-25] MEDS ORDERED: PANTOPRAZOLE 40 MG VIAL ONE (23:54)
[2021-11-26 01:09] LABS: CORONAVIRUS 229E-RESP PCR NOT DETECTED
[2021-11-26 01:10] LABS: B. PARAPERTUSSIS- RESP PCR PAN NOT DETECTED; B. PERTUSSIS- RESP PCR PANEL NOT DETECTED; C. PNEUMONIAE- RESP PCR PANEL NOT DETECTED; CORONAVIRUS HKU1-RESP PCR NOT DETECTED; CORONAVIRUS NL63-RESP PCR NOT DETECTED; CORONAVIRUS OC43-RESP PCR NOT DETECTED; HUMAN METAPNEUMOVIRUS NOT DETECTED; INFLUENZA A- RESP PCR PANEL NOT DETECTED; INFLUENZA B - RESP PCR PANEL NOT DETECTED; M. PNEUMONIAE- RESP PCR PANEL NOT DETECTED; PARAINFLUENZA VIRUS 1 NOT DETECTED; PARAINFLUENZA VIRUS 2 NOT DETECTED; PARAINFLUENZA VIRUS 3 NOT DETECTED; PARAINFLUENZA VIRUS 4 NOT DETECTED; RHINOVIRUS/ENTEROVIRUS NOT DETECTED; RSV- RESP PCR PANEL NOT DETECTED; SARS-CoV-2 -RESP PCR PANEL NOT DETECTED
[2021-11-26] MEDS ORDERED: OCTREOTIDE 500 MCG in SODIUM CHLORIDE 0.9% 100ML 95 ML IV STA (02:19)
[2021-11-26 02:35] LABS: BASOPHILS % (AUTO) 0.3 %; EOSINOPHILS % (AUTO) 0.1 %; HGB - HEMOGLOBIN 9.8 g/dL (14.0-18.0); LYMPHOCYTES # (AUTO) 1.2 10^3/uL (1.5-3.5); LYMPHOCYTES % (AUTO) 7.8 %; MEAN CORPUSCULAR HEMOGLOBIN 29.3 pg (27.0-31.0); MEAN CORPUSCULAR HGB CONC 32.7 g/dL (32.0-36.0); MEAN CORPUSCULAR VOLUME 89.8 fL (80.0-94.0); MEAN PLATELET VOLUME 9.1 fL (7.4-11.4); MONOCYTES # (AUTO) 0.6 10^3/uL (0.0-1.0); MONOCYTES % (AUTO) 4.1 %; NEUTROPHILS # (AUTO) 13.5 10^3/uL (1.5-6.6); NEUTROPHILS % (AUTO) 86.1 %; PLT - PLATELET COUNT 238 10^3/uL (130-450); RED BLOOD COUNT 3.34 10^6/uL (4.70-6.10); RED CELL DISTRIBUTION WIDTH 12.3 % (12.0-15.0); WHITE BLOOD COUNT 15.7 x10^3/uL (4.8-10.8)
--- NOTE | 2021-11-26 04:06 | ED Physician Documentation ---
History of Present Illness - Stated complaint Stated Complaint: GI ISSUES - Chief complaint Chief Complaint: Neuro - History obtained from History obtained from: Patient - Additonal information Additional information: The patient comes to the emergency department with chief complaint of vomiting blood. The patient states that he was feeling fine earlier today and was sitting watching TV when he suddenly began to feel nauseated. He went to the bathroom and had sudden output of a large amount of frankly bloody emesis and clots. The patient states he had a syncopal episode at that moment and woke up on the floor. The patient found that there is blood splattered all over the toilet and wall and that there was a puddle of blood and clots on the floor as well as in the toilet. Patient states he was diaphoretic and lightheaded. He drove himself here. The patient states he still feels somewhat lightheaded. He has a history of a gastric bypass and has had an ulcer before. He just had an e ndoscopy and colonoscopy with Dr. Lacy in the fall 2020, which was unremarkable. The patient has had a GI bleed previously, and is also treated chronically with iron for his ongoing anemia. No other complaints at this time. Review of Systems Ten Systems: 10 systems reviewed and negative Constitutional: reports: Reviewed and negative Eyes: reports: Reviewed and negative Ears: reports: Reviewed and negative Nose: reports: Reviewed and negative Throat: reports: Reviewed and negative Cardiac: reports: Reviewed and negative Respiratory: reports: Reviewed and negative GI: reports: Hematemesis : reports: Reviewed and negative Skin: reports: Reviewed and negative Musculoskeletal: reports: Reviewed and negative Neurologic: reports: Generalized weakness, Syncope Psychiatric: reports: Reviewed and negative Endocrine: reports: Reviewed and negative Immunocompromised: reports: Reviewed and negative PD PAST MEDICAL HISTORY - Past Medical History Cardiovascular: Hypertension, Other Respiratory: None, Sleep apnea Neuro: Other (Menieres disease) Endocrine/Autoimmune: None GI: GERD, GI bleed, Ulcers, Colon polyps, Pancreatitis, Other : None HEENT: Chronic vision loss Psych: Other Musculoskeletal: Chronic back pain Derm: Other - Past Surgical History Past Surgical History: Yes General: Cholecystectomy, Gastric surgery, Colonoscopy, EGD Ortho: Carpal Tunnel surgery, Other HEENT: Tonsil/Adenoidectomy Derm: Skin cancer surgery - Present Medications Home Medications: Ambulatory Orders Medication Instructions Recorded Confirmed Vitamin B Complex/Folic Acid 1 tab PO DAILY 02/03/16 11/25/21 [Vitamin B-100 Complex Tablet] NIFEdipine [Nifedipine ER] 3 tab PO DAILY 03/14/18 11/25/21 Multivitamin [Daily Multiple 1 each PO DAILY 01/10/19 11/25/21 Vitamin] Omeprazole 20 mg PO BID #60 capsule. 05/30/19 11/25/21 hydroCHLOROthiazide [Hydrodiuril] 25 mg PO DAILY 04/28/21 11/25/21 - Allergies Allergies/Adverse Reactions: Allergies Allergy/AdvReac Type Severity Reaction Status Date / Time NSAIDS (Non-Steroidal AdvReac Intermediate GI bleed Verified 11/25/21 22:33 Anti-Inflamma - Social History Does the pt smoke?: No Smoking Status: Never smoker Does the pt drink ETOH?: No Does the pt have substance abuse?: No - Immunizations Immunizations are current?: Yes Immunizations: TDAP >10years/unknown - POLST Patient has POLST: No PD ED PE NORMAL - Vitals Vital signs reviewed: Yes - General General: Alert and oriented X 3, No acute distress, Well developed/nourished - HEENT HEENT: Atraumatic, PERRL, EOMI, Moist mucous membranes - Neck Neck: Supple, no meningeal sign - Cardiac Cardiac: RRR, No murmur - Respiratory Respiratory: No respiratory distress, Clear bilaterally - Abdomen Abdomen: Soft, Non distended, Other (Mild epigastric tenderness, no rebound or guarding.) - Derm Derm: No rash, Other (Moderate pallor, mild diaphoresis.) - Extremities Extremities: No deformity, No edema - Neuro Neuro: Alert and oriented X 3, 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, Normal speech, Other (Grossly intact) - Psych Psych: Normal mood, Normal affect Results - Vitals Vitals: Vital Signs - 24 hr 11/25/21 11/25/21 11/25/21 22:22 22:33 22:59 Temperature 36.0 C L Heart Rate 101 H 95 84 Respiratory 21 17 17 Rate Blood Pressure 136/86 H 117/80 110/84 H O2 Saturation 100 99 97 11/25/21 11/26/21 11/26/21 23:18 00:07 01:00 Temperature Heart Rate 79 78 78 Respiratory 20 20 20 Rate Blood Pressure 111/77 O2 Saturation 97 11/26/21 11/26/21 11/26/21 01:57 02:00 02:30 Temperature Heart Rate 80 80 79 Respiratory 18 18 15 Rate Blood Pressure 118/76 127/79 119/76 O2 Saturation 97 100 98 11/26/21 11/26/21 11/26/21 03:00 03:30 04:00 Temperature Heart Rate 77 77 66 Respiratory 17 18 16 Rate Blood Pressure 114/70 117/75 111/69 O2 Saturation 97 97 98 11/26/21 11/26/21 11/26/21 04:30 05:00 05:30 Temperature Heart Rate 67 68 65 Respiratory 18 18 18 Rate Blood Pressure 121/68 139/85 H 137/79 H O2 Saturation 97 96 98 Oxygen O2 Source Room air - Labs Labs: Laboratory Tests 11/25/21 11/25/21 11/25/21 02:31 22:30 22:30 WBC 17.5 H RBC 3.98 L Hgb 11.7 L Hct 36.3 L MCV 91.2 MCH 29.4 MCHC 32.2 RDW 12.3 Plt Count 314 MPV 9.4 Neut # (Auto) 11.9 H Lymph # (Auto) 4.2 H Hart # (Auto) 1.0 Eos # (Auto) 0.1 Baso # (Auto) 0.1 Absolute Nucleated RBC 0.00 Nucleated RBC % 0.0 PT INR Sodium 133 L Potassium 3.2 L Chloride 98 L Carbon Dioxide 18 L Anion Gap 17.0 H BUN 42 H Creatinine 1.7 H Estimated GFR (MDRD) 41 L Glucose 295 H Calcium 8.8 Total Bilirubin 0.6 AST 20 ALT 16 Alkaline Phosphatase 55 Total Protein 6.4 L Albumin 3.9 Globulin 2.5 Albumin/Globulin Ratio 1.6 Lipase 162 H Nasal Adenovirus (PCR) Nasal B. parapertussis DNA (PCR) Nasal Coronavir 229E PCR Nasal Coronavir HKU1 PCR Nasal Coronavir NL63 PCR Nasal Coronavir OC43 PCR Nasal Enterovir/Rhinovir PCR Nasal Influenza B PCR Nasal Influenza A PCR Nasal Parainfluen 1 PCR Nasal Parainfluen 2 PCR Nasal Parainfluen 3 PCR Nasal Parainfluen 4 PCR Nasal RSV (PCR) Nasal B.pertussis DNA PCR Nasal C.pneumoniae (PCR) Rich Human Metapneumo PCR Nasal M.pneumoniae (PCR) Nasal SARS-CoV-2 (PCR) Blood Type Blood Type Recheck A POSITIVE Antibody Screen 11/25/21 11/25/21 11/26/21 22:30 22:30 00:00 WBC RBC Hgb Hct MCV MCH MCHC RDW Plt Count MPV Neut # (Auto) Lymph # (Auto) [place] # (Auto) Eos # (Auto) Baso # (Auto) Absolute Nucleated RBC Nucleated RBC % PT 12.0 INR 1.1 Sodium Potassium Chloride Carbon Dioxide Anion Gap BUN Creatinine Estimated GFR (MDRD) Glucose Calcium Total Bilirubin AST ALT Alkaline Phosphatase Total Protein Albumin Globulin Albumin/Globulin Ratio Lipase Nasal Adenovirus (PCR) NOT DETECTED Nasal B. parapertussis DNA (PCR) NOT DETECTED Nasal Coronavir 229E PCR NOT DETECTED Nasal Coronavir HKU1 PCR NOT DETECTED Nasal Coronavir NL63 PCR NOT DETECTED Nasal Coronavir OC43 PCR NOT DETECTED Nasal Enterovir/Rhinovir PCR NOT DETECTED Nasal Influenza B PCR NOT DETECTED Nasal Influenza A PCR NOT DETECTED Nasal Parainfluen 1 PCR NOT DETECTED Nasal Parainfluen 2 PCR NOT DETECTED Nasal Parainfluen 3 PCR NOT DETECTED Nasal Parainfluen 4 PCR NOT DETECTED Nasal RSV (PCR) NOT DETECTED Nasal B.pertussis DNA PCR NOT DETECTED Nasal C.pneumoniae (PCR) NOT DETECTED Rich Human Metapneumo PCR NOT DETECTED Nasal M.pneumoniae (PCR) NOT DETECTED Nasal SARS-CoV-2 (PCR) NOT DETECTED Blood Type A POSITIVE Blood Type Recheck Antibody Screen NEGATIVE 11/26/21 02:31 WBC 15.7 H RBC 3.34 L Hgb 9.8 L Hct 30.0 L MCV 89.8 MCH 29.3 MCHC 32.7 RDW 12.3 Plt Count 238 MPV 9.1 Neut # (Auto) 13.5 H Lymph # (Auto) 1.2 L Hart # (Auto) 0.6 Eos # (Auto) 0.0 Baso # (Auto) 0.0 Absolute Nucleated RBC 0.00 Nucleated RBC % 0.0 PT INR Sodium Potassium Chloride Carbon Dioxide Anion Gap BUN Creatinine Estimated GFR (MDRD) Glucose Calcium Total Bilirubin AST ALT Alkaline Phosphatase Total Protein Albumin Globulin Albumin/Globulin Ratio Lipase Nasal Adenovirus (PCR) Nasal B. parapertussis DNA (PCR) Nasal Coronavir 229E PCR Nasal Coronavir HKU1 PCR Nasal Coronavir NL63 PCR Nasal Coronavir OC43 PCR Nasal Enterovir/Rhinovir PCR Nasal Influenza B PCR Nasal Influenza A PCR Nasal Parainfluen 1 PCR Nasal Parainfluen 2 PCR Nasal Parainfluen 3 PCR Nasal Parainfluen 4 PCR Nasal RSV (PCR) Nasal B.pertussis DNA PCR Nasal C.pneumoniae (PCR) Rich Human Metapneumo PCR Nasal M.pneumoniae (PCR) Nasal SARS-CoV-2 (PCR) Blood Type Blood Type Recheck Antibody Screen PD MEDICAL DECISION MAKING - ED course Complexity details: reviewed old records, reviewed results, re-evaluated patient, considered differential, d/w patient, d/w regional sales consultant ED course: The patient was evaluated in the emergency department upon arrival and I was concerned about the amount of blood he had vomited. He was started on Protonix and octreotide drips and was worked up with laboratory studies, which showed initially a hemoglobin of 11.7. Patient's INR was normal. He had been given a liter of 0.9 normal saline and his blood pressure and heart rate remained stable and normal. A repeat H&H was done several hours later and showed the hemoglob in to drop to 9.8. I felt the patient should not admitted, though he did not need a transfusion right at this moment. I spoke with Dr. Lacy who stated he did not feel comfortable admitting the patient here because of his gastric bypass's history. He stated that if the patient has an ulcer, the bypass may need to be resolved revised. He states that he cannot do that here and he would like the patient transferred. I spoke ultimately after a number of phone calls with Dr. Blanca at [facility], who did agree to accept the patient to his service in transfer. Departure - Departure Disposition: 02 Transfer Acute Care Hosp Clinical Impression: Upper GI bleed, Symptomatic anemia, Syncope and collapse Condition: Serious Discharge Date/Time: 11/26/21 06:22
[2021-11-26 06:02] VITALS: BP 137/79
== END 2021-11-26 06:22 | disposition short-term general hospital (02) ==
LOC: ED 22:12
DX: K92.2 Gastrointestinal hemorrhage, unspecified (principal); D64.9 Anemia, unspecified; Z98.84 Bariatric surgery status; I10 Essential (primary) hypertension; Z20.822 Contact with and (suspected) exposure to COVID-19
CPT/HCPCS: 0202U; 36415; 80053; 83690; 85025; 85610; 86850; 86900; 86901; 93005; 96365; 96366; 96368; 96375; 99285; J2354

== ENCOUNTER 2021-12-07 15:20 | Emergency (ER) | payer OTHER ==
[2021-12-07] MEDS ORDERED: SODIUM CHLORIDE 0.9% 1,000 ML IV STA (15:56)
--- NOTE | 2021-12-07 15:56 | ED Physician Documentation ---
History of Present Illness - Stated complaint Stated Complaint: TIRED, RUN DOWN - Chief complaint Chief Complaint: General - History obtained from History obtained from: Patient - Additonal information Additional information: 61-year-old gentleman who is about 10 years out from gastric bypass. He was seen by my partner on the with a significant upper GI bleed and subsequently transferred to [facility] where he actually had a negative upper endoscopy. He did have a melena subsequent to that. He went for a postop visit and it was noted that his creatinine has been rising, it was 1.3 last week and today it was 1.7 so he was referred here for evaluation and treatment for that. He feels quite thirsty. States no more vomiting or bloody vomit. The melena has stopped as well and he is having normal bowel movements. Review of Systems Ten Systems: 10 systems reviewed and negative Constitutional: reports: Fatigue Cardiac: denies: Chest pain / pressure, Palpitations Respiratory: denies: Dyspnea, Cough GI: denies: Abdominal Pain, Nausea, Hematemesis, Bloody / black stool PD PAST MEDICAL HISTORY - Past Medical History Cardiovascular: Hypertension, Other Respiratory: None, Sleep apnea Neuro: Other (Menieres disease) Endocrine/Autoimmune: None GI: GERD, GI bleed, Ulcers, Colon polyps, Pancreatitis, Other : None HEENT: Chronic vision loss Psych: Other Musculoskeletal: Chronic back pain Derm: Other - Past Surgical History Past Surgical History: Yes General: Cholecystectomy, Gastric surgery, Colonoscopy, EGD Ortho: Carpal Tunnel surgery, Other HEENT: Tonsil/Adenoidectomy Derm: Skin cancer surgery - Present Medications Home Medications: Ambulatory Orders Medication Instructions Recorded Confirmed Vitamin B Complex/Folic Acid 1 tab PO DAILY 02/03/16 11/25/21 [Vitamin B-100 Complex Tablet] NIFEdipine [Nifedipine ER] 3 tab PO DAILY 03/14/18 11/25/21 Multivitamin [Daily Multiple 1 each PO DAILY 01/10/19 11/25/21 Vitamin] Omeprazole 20 mg PO BID #60 capsule. 05/30/19 11/25/21 hydroCHLOROthiazide [Hydrodiuril] 25 mg PO DAILY 04/28/21 11/25/21 - Allergies Allergies/Adverse Reactions: Allergies Allergy/AdvReac Type Severity Reaction Status Date / Time NSAIDS (Non-Steroidal AdvReac Intermediate ulcers Verified 12/07/21 15:39 Anti-Inflamma - Social History Does the pt smoke?: No Smoking Status: Never smoker Does the pt drink ETOH?: No Does the pt have substance abuse?: No - Immunizations Immunizations are current?: Yes Immunizations: TDAP >10years/unknown - POLST Patient has POLST: No PD ED PE NORMAL - Vitals Vital signs reviewed: Yes - General General: Alert and oriented X 3, No acute distress - Cardiac Cardiac: RRR, No murmur - Respiratory Respiratory: No respiratory distress, Clear bilaterally - Abdomen Abdomen: Normal bowel sounds, Soft, Non tender - Back Back: No CVA TTP, No spinal TTP - Derm Derm: Normal color, Warm and dry - Extremities Extremities: No edema, No calf tenderness / cord - Neuro Neuro: Alert and oriented X 3, Normal speech Results - Vitals Vitals: Vital Signs - 24 hr 12/07/21 12/07/21 12/07/21 15:40 15:47 17:47 Temperature 37.0 C 37.0 C Heart Rate 77 77 90 Respiratory 18 16 11 L Rate Blood Pressure 139/85 H 139/85 H 143/89 H O2 Saturation 100 100 100 Oxygen O2 Source Room air - EKG (time done) 1615 Rate: Rate (enter#) (84) Rhythm: NSR (w pacs) [place]: Normal Intervals: Normal ID QRS: Normal Ischemia: Normal ST segments Computer interpretation: Agree with computer - Labs Labs: Laboratory Tests 12/07/21 12/07/21 12/07/21 16:03 16:03 16:03 WBC 12.2 H RBC 2.98 L Hgb 9.0 L Hct 27.4 L MCV 91.9 MCH 30.2 MCHC 32.8 RDW 14.6 Plt Count 375 MPV 9.1 Neut # (Auto) 9.9 H Lymph # (Auto) 1.5 [place] # (Auto) 0.6 Eos # (Auto) 0.0 Baso # (Auto) 0.0 Absolute Nucleated RBC 0.00 Nucleated RBC % 0.0 PT 11.0 INR 1.0 Sodium 139 Potassium 3.3 L Chloride 101 Carbon Dioxide 26 Anion Gap 12.0 BUN 37 H Creatinine 1.7 H Estimated GFR (MDRD) 41 L Glucose 105 H Calcium 9.4 Total Bilirubin 0.4 AST 15 ALT 15 Alkaline Phosphatase 54 Total Protein 6.8 Albumin 4.4 Globulin 2.4 Albumin/Globulin Ratio 1.8 Blood Type Antibody Screen 12/07/21 16:31 WBC RBC Hgb Hct MCV MCH MCHC RDW Plt Count MPV Neut # (Auto) Lymph # (Auto) [place] # (Auto) Eos # (Auto) Baso # (Auto) Absolute Nucleated RBC Nucleated RBC % PT INR Sodium Potassium Chloride Carbon Dioxide Anion Gap BUN Creatinine Estimated GFR (MDRD) Glucose Calcium Total Bilirubin AST ALT Alkaline Phosphatase Total Protein Albumin Globulin Albumin/Globulin Ratio Blood Type A POSITIVE Antibody Screen NEGATIVE PD MEDICAL DECISION MAKING - ED course ED course: 61-year-old gentleman with recent hospitalization for GI bleed presents for concern for renal function on outpatient labs. He has significant prerenal azotemia here and is treated with 2 L of IV fluid. He is also hypokalemic which was repleted. He was noted to have a lot of ectopy here, supraventricular PACs. This could be from his hypokalemia. Departure - Departure Disposition: 01 Home, Self Care Clinical Impression: Hypokalemia, Prerenal azotemia Condition: Good Record reviewed to determine appropriate education?: Yes Instructions: ED Diet High Potassium Comments: Probably need to have labs done again may be around . Call your doctor to arrange. Return for new or worsening symptoms. Drink plenty of fluids.
[2021-12-07 16:14] LABS: BASOPHILS % (AUTO) 0.3 %; EOSINOPHILS % (AUTO) 0.3 %; HCT - HEMATOCRIT 27.4 % (42.0-52.0); LYMPHOCYTES # (AUTO) 1.5 10^3/uL (1.5-3.5); LYMPHOCYTES % (AUTO) 12.3 %; MEAN CORPUSCULAR HEMOGLOBIN 30.2 pg (27.0-31.0); MEAN CORPUSCULAR HGB CONC 32.8 g/dL (32.0-36.0); MEAN CORPUSCULAR VOLUME 91.9 fL (80.0-94.0); MEAN PLATELET VOLUME 9.1 fL (7.4-11.4); MONOCYTES # (AUTO) 0.6 10^3/uL (0.0-1.0); MONOCYTES % (AUTO) 4.6 %; NEUTROPHILS # (AUTO) 9.9 10^3/uL (1.5-6.6); NEUTROPHILS % (AUTO) 81.6 %; PLT - PLATELET COUNT 375 10^3/uL (130-450); RED BLOOD COUNT 2.98 10^6/uL (4.70-6.10); RED CELL DISTRIBUTION WIDTH 14.6 % (12.0-15.0); WHITE BLOOD COUNT 12.2 x10^3/uL (4.8-10.8)
[2021-12-07 16:36] LABS: ALBUMIN 4.4 g/dL (3.2-5.5); ALBUMIN/GLOBULIN RATIO 1.8 (1.0-2.2); BILIRUBIN,TOTAL 0.4 mg/dL (0.2-1.0); CALCIUM 9.4 mg/dL (8.5-10.3); CREATININE 1.7 mg/dL (0.6-1.2); POTASSIUM 3.3 mmol/L (3.5-5.0); TOTAL PROTEIN 6.8 g/dL (6.7-8.2)
[2021-12-07] MEDS ORDERED: POTASSIUM CHLOR 10 MEQ/100 ML 10 MEQ/100 ML BAG IV STA (16:43)
[2021-12-07] MEDS ORDERED: LACTATED RINGERS 1,000 ML IV STA (16:43)
[2021-12-07 19:05] VITALS: BP 145/97
== END 2021-12-07 19:18 | disposition home or self-care (01) ==
LOC: ED 15:20
DX: E87.6 Hypokalemia (principal); R79.89 Other specified abnormal findings of blood chemistry; I10 Essential (primary) hypertension; Z98.84 Bariatric surgery status
CPT/HCPCS: 36415; 80053; 85025; 85610; 86850; 86900; 86901; 93005; 96361; 96365; 99283; 99284; J7120

== ENCOUNTER 2022-12-25 17:48 | Emergency (ER) | payer OTHER ==
--- NOTE | 2022-12-25 18:41 | XRAY Report ---
PROCEDURE: Foot 3 View RT INDICATIONS: Trauma TECHNIQUE: 3 views of the foot were acquired. COMPARISON: None. FINDINGS: Bones: No fractures or dislocations. No suspicious bony lesions. A plantar calcaneal spur is incid entally noted. There is a prominent enthesophyte along the posterior aspect of the calcaneus at the Achilles insertion. Soft tissues: Distal soft tissue swelling is seen. IMPRESSION: Soft tissue swelling is seen. No findings of fracture are seen. However, if there is point tenderness (or other clinical concern fo r a fracture not seen on these plain films) then please consider a short-term follow-up plain film se alka or CT for further evaluation. Reviewed by: Jose Anderson MD on 12/25/2022 5:39 PM FERNANDO Approved by: Jose Anderson MD on 12/25/2022 5:39 PM FERNANDO Station ID: [id number]
[2022-12-25] MEDS ORDERED: KETOROLAC 60 MG/2 ML VIAL IM STA (19:13)
[2022-12-25] MEDS ORDERED: TETANUS/DIPHTHERIA/PERTUSSIS 0.5 ML SYRINGE IM ONE (19:14)
--- NOTE | 2022-12-25 19:15 | ED Physician Documentation ---
PD HPI LOWER EXT INJURY - Stated complaint Stated Complaint: RT FT INJ - Chief complaint Chief Complaint: Ext Problem - History obtained from History obtained from: Patient (He dropped a large metal vice on his foot just after 4:30 PM with moderate to severe pain of the top of the foot. No other injuries. He is able to walk and bear weight. Tetanus is unknown and he does have an abrasion there.) PD PAST MEDICAL HISTORY - Past Medical History Cardiovascular: Hypertension, Other Respiratory: None, Sleep apnea Neuro: Other (Menieres disease) Endocrine/Autoimmune: None GI: GERD, GI bleed, Ulcers, Colon polyps, Pancreatitis, Other : None HEENT: Chronic vision loss Psych: Other Musculoskeletal: Chronic back pain Derm: Other - Past Surgical History Past Surgical History: Yes General: Cholecystectomy, Gastric surgery, Colonoscopy, EGD Ortho: Carpal Tunnel surgery, Other HEENT: Tonsil/Adenoidectomy Derm: Skin cancer surgery - Present Medications Home Medications: Ambulatory Orders Medication Instructions Recorded Confirmed Vitamin B Complex/Folic Acid 1 tab PO DAILY 02/03/16 12/25/22 [Vitamin B-100 Complex Tablet] NIFEdipine [Nifedipine ER] 10 tab PO QID 03/14/18 12/25/22 Multivitamin [Daily Multiple 1 each PO DAILY 01/10/19 12/25/22 Vitamin] Omeprazole 20 mg PO BID #60 capsule. 05/30/19 12/25/22 Carvedilol [Coreg] 6.25 mg PO DAILY 12/20/22 12/25/22 - Allergies Allergies/Adverse Reactions: Allergies Allergy/AdvReac Type Severity Reaction Status Date / Time NSAIDS (Non-Steroidal AdvReac Intermediate ulcers Verified 12/07/21 15:39 Anti-Inflamma - Social History Does the pt smoke?: No Smoking Status: Never smoker Does the pt drink ETOH?: No Does the pt have substance abuse?: No - Immunizations Immunizations are current?: Yes Immunizations: TDAP >10years/unknown - POLST Patient has POLST: No PD ED PE NORMAL - Vitals Vital signs reviewed: Yes - General General: Alert and oriented X 3, No acute distress - Extremities Extremities: Other (Hematoma and abrasion to the top of the foot without bony tenderness or limited range of motion.) - Neuro Neuro: Alert and oriented X 3, Normal speech Results - Vitals Vitals: Vital Signs - 24 hr 12/25/22 18:05 Temperature 36.4 C L Heart Rate 63 Respiratory 20 Rate Blood Pressure 150/90 H O2 Saturation 99 Oxygen O2 Source Room air - Rads (name of study) Right foot x-ray is negative for bony injury. Relevant Findings:: Final report received, EMP independent interpretation of test PD Medical Decision Making - ED course ED course: 62-year-old gentleman with right foot abrasion and hematoma. Conservative care was advised. Tetanus was updated Departure - Departure Disposition: 01 Home, Self Care Clinical Impression: Abrasion, right foot, initial encounter, Hematoma of right foot Condition: Good Record reviewed to determine appropriate education?: Yes Instructions: ED Abrasion, ED Hematoma Comments: Recheck with your doctor in a week if not improved, return for new or worsening symptoms.
[2022-12-25 19:31] VITALS: BP 144/96
== END 2022-12-25 19:30 | disposition home or self-care (01) ==
LOC: ED 17:48
DX: S90.31XA Contusion of right foot, initial encounter (principal); S90.811A Abrasion, right foot, initial encounter; W20.8XXA Other cause of strike by thrown, projected or falling object, initial encounter
CPT/HCPCS: 90471; 96372; 99283